=== PATIENT | female | born 1945 | race Caucasian/White ===

== ENCOUNTER → 2016-08-11 | Outpatient (CLI) | payer OTHER, MEDICARE ==
[~2016-08-11] MED LIST: ASPI81TA28 PO; RANI300T2 PO; SYN25 PO
--- NOTE | 2016-08-11 15:08 | MAMMOGRAPHY REPORT ---
ULTRASOUND OF BOTH BREASTS: 08/11/2016 CLINICAL HISTORY: History of bilateral mastectomies 2012. The patient reports pain in her chest, wh ich has been tender for years although appears worse since a fall in March and is also worse with more frequent arm movements. She denies any palpable lumps. COMPARISON: Comparison is made to exams dated: 08/13/2010 localization - [facility] and 07/12/2010 mammogram. TECHNIQUE: Real-time targeted ultrasound was performed. FINDINGS: Real-time, high-resolution targeted ultrasound was performed of the areas of pain pointed out by the patient, predominantly along both mastectomy scars. Along her right mastectomy scar, there are mul tiple round/oval circumscribed fluid collections/cysts, the largest measuring 1.7 x 0.8 x 1.2 cm lizandro ng the medial aspect of the scar. One of the masses along the medial aspect of the scar is anechoic but contains echogenic material internally, measuring 8 x 6 x 4 mm. One mass along the lateral asp ect of the scar is anechoic but contains a thickened internal septation, measuring 6 x 3 x 3 mm. An other anechoic fluid collection is seen along the lateral aspect of the scar measuring 8 x 6 x 6 mm. The masses are probably benign and likely represent postsurgical changes including fat necrosis an d/or seromas. Targeted ultrasound was performed along the left mastectomy bed along the scar. A round isoechoic 3 x 4 mm superficial mass with surrounding hyperechogenicity is noted along the lateral aspect of the scar, which likely represents fat necrosis. No suspicious solid masses are evident. IMPRESSION: ACR-BI-RADS CATEGORY 3: PROBABLY BENIGN - FOLLOW-UP RECOMMENDED Small fluid collections/cysts along the right mastectomy scar, some of which are complicated. The f indings are probably benign and likely represent postsurgical changes including fat necrosis. No caceres spicious masses are seen at the site of pain pointed out by the patient along bilateral mastectomy s cars. Recommend follow-up ultrasound in 6 months to reevaluate the newly visualized right breast ma sses given the complicated nature. Also recommend clinical follow-up for pain. The patient was verbally notified of the results. Fiona Cerna M.D. /:08/11/2016 11:58:56 Attending Technologist: Dennis KAUFMAN(Devonte)(M), [facility] Bedspread Inspector: Fiona Cerna MD, [facility] letter sent: Follow Up Recommended 3 BI-RADS Code: ACR-BI-RADS Category 3: Probably Benign
== END | disposition home or self-care (01) ==
LOC: C.MAMM 10:35
PROVIDERS: ATTEND Surgery
DX: R07.89 Other chest pain (principal); Z90.13 Acquired absence of bilateral breasts and nipples; R92.8 Other abnormal and inconclusive findings on diagnostic imaging of breast

== ENCOUNTER 2019-10-11 18:32 | Inpatient (IN) ==
[2019-10-11] MEDS ORDERED: SODIUM CHLORIDE 0.9% 250 ML IV PRN ×2 (19:26→21:14)
[2019-10-11 20:27] LABS: Hematocrit (blood only) 20.1 % (37-47); Hemoglobin 5.7 g/dL (12.0-16.0); Mean Corpuscular Hemoglobin 19.5 pg (25-34); Mean Corpuscular Hgb Conc 28.4 g/dL (32-36); Mean Corpuscular Volume 68.8 fL (80-100); Mean Platelet Volume 10.4 fL (7.4-10.4); Platelet Count 411 K/uL (130-400); RDW Coefficient of Variation 16.9 % (11.5-14.5); RDW Standard Deviation 42.8 fL (36.4-46.3); Red Blood Count 2.92 M/uL (4.2-5.4)
[2019-10-11 20:32] LABS: Alanine Aminotransferase 19 U/L (12-78); Albumin Level 3.2 gm/dl (3.4-5.0); Aspartate Aminotransferase 12 U/L (15-37); BUN Creatinine Ratio 14.7 (10-20); Blood Urea Nitrogen 15 mg/dl (7-18); Calcium 8.9 mg/dl (8.5-10.1); Carbon Dioxide 26 mmol/L (21-32); Chloride 113 mmol/L (98-107); Creatinine Clr Calc Pharmacy 46.4 ml/min; Est GFR (African American) 60.2; Est GFR (Non-African American) 51.9; Glucose 99 mg/dl (70-99); Potassium 4.2 mmol/L (3.5-5.1); Sodium 143 mmol/L (136-145)
[2019-10-11 20:36] LABS: Albumin Globulin Ratio 0.9 (0.9-2); Alkaline Phosphatase 80 U/L (45-117); Bilirubin,Total 0.3 mg/dl (0.2-1); Globulin 3.7 gm/dl (2.5-4.0); Total Protein 6.9 gm/dl (6.4-8.2); Troponin I < 0.015 ng/ml (0-0.045)
[2019-10-11 20:47] LABS: Basophils # (auto) 0.02 K/uL (0-0.2); Basophils % (auto) 0.3 %; Eosinophils # (auto) 0.16 K/uL (0-0.5); Eosinophils % (auto) 2.3 %; Giant Platelets 1+; Hypochromasia Present; Immature Granulocytes # (auto) 0.01 K/uL (0.00-0.02); Immature Granulocytes % (auto) 0.1 %; Lymphocytes # (auto) 1.14 K/uL (1.2-3.4); Lymphocytes % (auto) 16.3 %; Microcytosis Present; Monocytes # (auto) 0.79 K/uL (0.11-0.59); Monocytes % (auto) 11.3 %; Neutrophils # (auto) 4.88 K/uL (1.4-6.5); Neutrophils % (auto) 69.7 %; Target Cells 1+; Tear Drop Cells 1+
--- NOTE | 2019-10-11 21:16 | Emergency Department Note ---
ED Visit Note I have seen and examined this patient with Aysha Casiano and generally agree with the treatment plan as discussed. .
--- NOTE | 2019-10-11 23:53 | History and Physical Report ---
DATE OF ADMISSION: 10/11/2019 CHIEF COMPLAINT: Weakness, shortness of breath on exertion. HISTORY OF PRESENT ILLNESS: This is a 74-year-old female with past medical history significant for hypothyroidism, recurrent metastatic breast cancer, chronic kidney disease stage III, hiatal hernia, microcytic anemia, who presents because of feeling weak, not feeling good. The patient's about a month ago and she thought she is feeling depressed, tired, poor appetite, and poor sleep. Her family doctor increased her levothyroxine to 50 mcg. But she was not doing good workup was done as outpatient with CBC which showed significant anemia with hemoglobin of 5.9 and she was advised to come to the ER. Currently, her hemoglobin is 5.7, and hemodynamically stable. Denies any blood in the stools or black stools. Hemoccult was faintly positive in the ER. No abdominal pain, no hematuria, no burning micturitions. Has some nausea, but no vomiting. No chest pain. Has some shortness of breath on exertion. No cough. She gets hot flashes sometimes in the nighttime. Denies any headache, no blurred visions, no earache, no runny nose, no sore throat, no dysphagia. Currently resting comfortably and hemodynamically stable. 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 Had recurrent breast cancer hormone positive in December 2018. Since been on hormonal treatment with letrozole. 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 ALLERGIES: No known drug allergies. PAST MEDICAL HISTORY: As mentioned above. PAST SURGICAL HISTORY: Ligation of the oviduct, partial mastectomy in 2010, bilateral complete mastectomy in 2012, appendectomy at age of 15, localized retinal lesions treated with injections. MEDICATIONS: The patient is on Pepcid 20 mg p.o. daily, atorvastatin 10 mg p.o. daily, levothyroxine 50 mcg p.o. daily, Fosamax 70 mg p.o. weekly, lisinopril 40 mg p.o. daily, letrozole 2.5 mg p.o. daily, vitamin D 2000 units p.o. daily, aspirin 81 mg p.o. daily. FAMILY HISTORY: Significant for mother had metastatic lung cancer, heart disorder, goiter; father had diabetes, CABG. SOCIAL HISTORY: Currently lives alone. No smoking, no alcohol, no drug use. REVIEW OF SYSTEMS: As per HPI. Rest of the review of systems negative. PHYSICAL EXAMINATION: GENERAL: The patient is of moderate build, not in acute distress. VITAL SIGNS: Temperature 36.9, pulse 96, respiratory rate 19, blood pressure 143/62, oxygen 98%. HEENT: No pallor, no icterus. Pupils equal, round, and reactive. NECK: No JVD, no neck masses, no carotid bruits. Neck supple. CARDIOVASCULAR: S1, S2 heard. Regular rate and rhythm, no murmur, no gallop. RESPIRATORY SYSTEM: Normal AP diameter. No accessory muscle use. No wheezing, no crackles. ABDOMEN: Soft, bowel sounds present, nontender. No distention. CENTRAL NERVOUS SYSTEM: Cranial nerves II-XII grossly intact. Nonfocal. EXTREMITIES: No edema, no erythema. LABORATORY DATA: WBC 7, hemoglobin 5.7, hematocrit 20.1, platelets 411. Sodium 143, potassium 4.2, chloride 113, bicarbonate 26, BUN 15, creatinine 1.05, serum glucose 99, calcium 8.9, total bilirubin 0.3, AST 12, ALT 19, alkaline phosphatase 80, troponin I less than 0.015. EKG: Normal sinus rhythm, rate of 90, no acute ST changes seen. ASSESSMENT AND PLAN: This is a 74-year-old female who presents with symptomatic anemia. 1. Symptomatic anemia. Feeling weak, tired, fatigued, shortness of breath on exertion. Her hemoglobin is 5.7. No obvious signs of bleeding. Hemoccult was faintly positive in the ER. The patient has history of metastatic breast cancer, mets to the lungs, on letrozole.Will Transfuse 2 units of PRBC. We will check the hemoccult. We will check vitamin B12, folate levels, ferritin. We will keep her n.p.o. Gentle fluids. Will consult GI in the a.m. for possible scopes. To consider consulting hematology/oncology. 2. History of metastatic breast cancer, recurrent, status post bilateral mastectomies in 2012, currently on letrozole. Follows with hematology/oncology. 3. History of hypothyroidism. Continue Synthroid. 4. History of hypertension, on lisinopril. Monitor the blood pressure. 5. Hyperlipidemia, on statin. 6. Deep vein thrombosis prophylaxis, sequential compression devices. DISPOSITION: Closely monitor in the tele floor. Level 1 full. Code status DNR/DNI as per my discussion with the patient. MTDD
[2019-10-12] MEDS ORDERED: SODIUM CHLORIDE 0.9% 250 ML IV PRN (00:12)
[2019-10-12] MEDS ORDERED: POLYETHYLENE (MIRALAX) 17 GM PACK PO PRN (00:12)
[2019-10-12] MEDS ORDERED: ACETAMINOPHEN 325 MG TAB PO PRN ×2 (00:12→07:04)
[2019-10-12] MEDS ORDERED: SODIUM CHLORIDE 0.9% 1000ML 1,000 ML IV SCH (00:12)
[2019-10-12] MEDS ORDERED: NITROGLYCERIN SL 0.4 MG/TAB TAB SL PRN (00:12)
[2019-10-12] MEDS ORDERED: ONDANSETRON INJ 2 MG/ML 2 ML VIAL IV PRN (00:12)
--- NOTE | 2019-10-12 00:13 | Emergency Department Note ---
History of Present Illness General Chief complaint: Referred by Doctor Stated complaint: REF FOR BLOOD TRANS - TIRED NO ENERGY Time Seen by Provider: 10/11/19 19:12 Source: patient Mode of arrival: ambulatory Limitations: no limitations History of Present Illness This patient is a 74-year-old female who presents to the emergency department for evaluation of weakness x1 week. Patient reports that she has felt more fatigued than usual and has had weakness in her legs. She reports some shortness of breath on exertion. She reports some minimal lightheadedness and denies any episodes of syncope. Denies chest pain. She denies fevers or recent illness. She reports that she was seen by her primary care provider today and had labs drawn and was called telling her to come here because her blood counts were low. She reports a history of breast cancer in 2010 with bilateral mastectomy. She is also treated for hypertension. She denies noticing any blood in her stools or dark/tarry stools. She denies any history of anemia or blood transfusions. Home Medications Home Medications Medication Instructions Recorded Confirmed Type alendronate 70 mg tablet 70 mg PO WEEKLY tab 11/16/18 10/11/19 History aspirin 81 mg tablet,delayed 81 mg PO QAM 11/16/18 10/11/19 History release atorvastatin 10 mg tablet 10 mg PO QAM 11/16/18 10/11/19 History cholecalciferol (vitamin D3) 50 2,000 units PO QAM 11/16/18 10/11/19 History mcg (2,000 unit) capsule levothyroxine 50 mcg capsule 50 mcg PO QAM 11/16/18 10/11/19 History letrozole 2.5 mg PO QAM 10/11/19 10/11/19 History lisinopril 40 mg PO QAM 10/11/19 10/11/19 History Allergies Allergy/AdvReac Type Severity Reaction Status Date / Time No Known Allergies Allergy Verified 10/11/19 21:15 Past Med/Surg History Medical History Breast cancer, right breast h/o 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 Shagufta shen H/O partial mastectomy (07/2010) Right sentinel node and right partial mastectomy Dr. Maya History of esophagogastroduodenoscopy (EGD) History of partial mastectomy (08/2010) Re-excision of right breast Dr. Maya S/P appendectomy Age 16 S/P biopsy (12/20/18) Open Excisional Biopsy Anterior Chest Wall with Frozen Section Dr. Friend 12-20-18 Social History Preferred Language: Maltese Communication Ability: Effective Implementation Manager Required: No Beliefs That Will Affect Care: None Current Living Situation: Spouse Feels Safe at Home: Yes Smoking Status: Never smoker Second Hand Exposure: Yes (as a child) ; Hx Alcohol Use: No Hx Substance Use: No Review of Systems A total of 10 systems reviewed and were otherwise negative Physical Exam Vital Signs Vital Signs - 24 hr 10/11/19 18:50 10/11/19 19:54 10/11/19 20:00 Temperature 36.9 C Temperature Source Oral Pulse Rate 96 H 91 H 86 Respiratory Rate 19 18 27 H Respiratory Depth Normal Blood Pressure 143/62 H 146/64 H 132/65 Blood Pressure Mean 89 81 93 Pulse Oximetry 98 98 95 Oxygen Delivery Method Room Air Room Air Oxygen Flow Rate Sepsis Recent Fever Within 48 Hours No Sepsis Action Taken by Nursing No Action Required 10/11/19 20:30 10/11/19 20:31 10/11/19 21:00 Temperature Temperature Source Pulse Rate 84 83 98 H Respiratory Rate 18 18 20 Respiratory Depth Blood Pressure 127/71 141/61 H Blood Pressure Mean 80 85 Pulse Oximetry 97 97 Oxygen Delivery Method Room Air Oxygen Flow Rate Sepsis Recent Fever Within 48 Hours Sepsis Action Taken by Nursing 10/11/19 21:30 10/11/19 22:00 10/11/19 22:07 Temperature 36.8 C Temperature Source Oral Pulse Rate 83 84 88 Respiratory Rate 18 15 20 Respiratory Depth Blood Pressure 134/71 124/71 143/67 H Blood Pressure Mean 100 84 92 Pulse Oximetry 98 98 96 Oxygen Delivery Method Oxygen Flow Rate Sepsis Recent Fever Within 48 Hours Sepsis Action Taken by Nursing 10/11/19 22:22 10/11/19 23:24 Temperature 36.7 C Temperature Source Oral Pulse Rate 86 84 Respiratory Rate 18 20 Respiratory Depth Blood Pressure 135/52 L 140/71 Blood Pressure Mean 79 94 Pulse Oximetry 97 97 Oxygen Delivery Method Room Air Oxygen Flow Rate 0 Sepsis Recent Fever Within 48 Hours Sepsis Action Taken by Nursing VITALS: Vitals are noted on the nurse's note and reviewed by myself. Vital signs stable. GENERAL: This is a 74-year-old female, in no acute distress, nondiaphoretic, well-developed well-nourished. SKIN: Skin is pale and dry. HEAD: Normocephalic atraumatic. EARS: External auditory canals clear, tympanic membranes pearly ramesh without erythema or effusion bilaterally. EYES: Pupils equal round and reactive to light and accommodation. Conjunctival pallor. MOUTH: Mucous membranes moist. NECK: Supple without nuchal rigidity. No lymphadenopathy. HEART: Regular rate and rhythm without murmurs gallops or rubs. LUNGS: Clear to auscultation bilaterally without wheezes, rales or rhonchi. ABDOMEN: Positive bowel sounds x 4. Soft, nontender to palpation. RECTAL: No external hemorrhoids or anal fissures noted. Dark brown heme- negative stool. NEURO: Patient was alert and oriented to person place and time. No neurological deficits. Course Consultations [facility] Time Critical Care Time: Yes Total Critical Care Time: 35 I have personally spent greater than 35 minutes of critical care time in the direct management of this patient. This includes bedside care, interpretation of diagnostic studies, and testing, discussion with consultants, patient, and family members, and other required patient management activities. This 35 minutes is in excess of all separately billable procedures. Medical Decision Making Differential Diagnosis Differential diagnosis includes infection, dehydration, metabolic abnormality, hypo/hyperglycemia, electrolyte disturbance, anemia, hypoxia, cardiac sources, intracerebral event, toxicologic, neurologic, as well as other pathologies. Home Medications Current Medication List: was personally reviewed by me Laboratory Data Attestation: I reviewed the patient's lab results. Result diagrams: 10/11/19 19:50 10/11/19 19:50 Lab Results 10/11/19 10/11/19 10/11/19 Range/Units 19:35 19:50 19:50 WBC 7.00 (4.8-10.8) K/uL RBC 2.92 L (4.2-5.4) M/uL Hgb 5.7 L* (12.0-16.0) g/dL Hct 20.1 L* (37-47) % MCV 68.8 L (80-100) fL MCH 19.5 L (25-34) pg MCHC 28.4 L (32-36) g/dL RDW Std Deviation 42.8 (36.4-46.3) fL RDW Coeff of [place] 16.9 H (11.5-14.5) % Plt Count 411 H (130-400) K/uL MPV 10.4 (7.4-10.4) fL Immature Gran % (Auto) 0.1 % Neut % (Auto) 69.7 % Lymph % (Auto) 16.3 % [place] % (Auto) 11.3 % Eos % (Auto) 2.3 % Baso % (Auto) 0.3 % Neut # (Auto) 4.88 (1.4-6.5) K/uL Lymph # (Auto) 1.14 L (1.2-3.4) K/uL [place] # (Auto) 0.79 H (0.11-0.59) K/uL Eos # (Auto) 0.16 (0-0.5) K/uL Baso # (Auto) 0.02 (0-0.2) K/uL Immature Gran # (Auto) 0.01 (0.00-0.02) K/uL Giant Platelets 1+ Hypochromasia Present Microcytosis Present Target Cells 1+ Tear Drop Cells 1+ Sodium 143 (136-145) mmol/L Potassium 4.2 (3.5-5.1) mmol/L Chloride 113 H (98-107) mmol/L Carbon Dioxide 26 (21-32) mmol/L Anion Gap 4.0 (3-11) BUN 15 (7-18) mg/dl Creatinine 1.05 (0.6-1.2) mg/dl Est Cr Clr Drug Dosing 46.4 ml/min Est GFR ( Amer) 60.2 Est GFR (Non-Af Amer) 51.9 BUN/Creatinine Ratio 14.7 (10-20) Glucose 99 (70-99) mg/dl Calcium 8.9 (8.5-10.1) mg/dl Total Bilirubin 0.3 (0.2-1) mg/dl AST 12 L (15-37) U/L ALT 19 (12-78) U/L Alkaline Phosphatase 80 (45-117) U/L Troponin I < 0.015 (0-0.045) ng/ml Total Protein 6.9 (6.4-8.2) gm/dl Albumin 3.2 L (3.4-5.0) gm/dl Globulin 3.7 (2.5-4.0) gm/dl Albumin/Globulin Ratio 0.9 (0.9-2) Blood Type O Positive Blood Type Recheck Antibody Screen NEGATIVE Crossmatch See Detail 10/11/19 Range/Units 20:35 WBC (4.8-10.8) K/uL RBC (4.2-5.4) M/uL Hgb (12.0-16.0) g/dL Hct (37-47) % MCV (80-100) fL MCH (25-34) pg MCHC (32-36) g/dL RDW Std Deviation (36.4-46.3) fL RDW Coeff of [place] (11.5-14.5) % Plt Count (130-400) K/uL MPV (7.4-10.4) fL Immature Gran % (Auto) % Neut % (Auto) % Lymph % (Auto) % [place] % (Auto) % Eos % (Auto) % Baso % (Auto) % Neut # (Auto) (1.4-6.5) K/uL Lymph # (Auto) (1.2-3.4) K/uL [place] # (Auto) (0.11-0.59) K/uL Eos # (Auto) (0-0.5) K/uL Baso # (Auto) (0-0.2) K/uL Immature Gran # (Auto) (0.00-0.02) K/uL Giant Platelets Hypochromasia Microcytosis Target Cells Tear Drop Cells Sodium (136-145) mmol/L Potassium (3.5-5.1) mmol/L Chloride (98-107) mmol/L Carbon Dioxide (21-32) mmol/L Anion Gap (3-11) BUN (7-18) mg/dl Creatinine (0.6-1.2) mg/dl Est Cr Clr Drug Dosing ml/min Est GFR ( Amer) Est GFR (Non-Af Amer) BUN/Creatinine Ratio (10-20) Glucose (70-99) mg/dl Calcium (8.5-10.1) mg/dl Total Bilirubin (0.2-1) mg/dl AST (15-37) U/L ALT (12-78) U/L Alkaline Phosphatase (45-117) U/L Troponin I (0-0.045) ng/ml Total Protein (6.4-8.2) gm/dl Albumin (3.4-5.0) gm/dl Globulin (2.5-4.0) gm/dl Albumin/Globulin Ratio (0.9-2) Blood Type Blood Type Recheck O Positive Antibody Screen Crossmatch ECG Data Attestation: I personally reviewed and interpreted this ECG as follows: Indication: + weakness Rate (beats per minute): 90 Rhythm: + normal sinus ECG Intervals/blocks: + Normal QRS ECG [place]: + Normal ECG ST segments: + Normal ST segments Comparison ECG Date: no prior available Blood Pressure Blood Pressure Findings: Normal blood pressure MDM Narrative 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 Patient was noted to be in normal sinus rhythm at an initial rate of 91 bpm. The patient is a 74-year-old female who presents today complaining of weakness. Patient was sent in by her primary care provider due to a low hemoglobin. Hemoglobin here is 5.7. Rectal is Hemoccult negative. Labs unremarkable other than the anemia. 2 units of packed red blood cells were ordered and consent obtained for transfusion. [facility] who agreed to evaluate the patient for further care. Impression & Plan Symptomatic anemia Discharge Plan Visit Data *Final* Discharge Date/Time: 10/11/19 23:36 Chief Complaint: Referred by Doctor Stated Complaint: REF FOR BLOOD TRANS - TIRED NO ENERGY ED Provider: Yong Menchaca ED Midlevel Provider: Aysha Casiano Discharge Problem: Symptomatic anemia Patient Disposition: Admitted As Inpatient Discharge Instructions Interventions: ED Discharge Assessment Last Done: 10/11/19 23:36
[2019-10-12] MEDS ORDERED: FUROSEMIDE 20 MG in SYRINGE 0 ML IV ONE (00:30)
[2019-10-12] MEDS ORDERED: FUROSEMIDE 40 MG/4 ML VIAL IV ONE (01:00)
[2019-10-12] MEDS: PANTOprazole 40 MG in SYRINGE 0 ML IV SCH ×3 (01:39→20:55)
[2019-10-12 01:42] LABS: Appearance Urine Clear (Clear); Bacteria Urine Automated Negative (Negative); Bilirubin Urine Negative (Negative); Blood Urine Negative (Negative); Color Urine Yellow; Glucose Urine UA Negative (Negative); Ketones Urine Negative (Negative); Leukocyte Esterase Urine 3+ (Negative); Nitrite Urine Negative (Negative); Protein Urine Negative (Negative); RBC Urine Automated 0-4 /hpf (0-4); Specific Gravity Urine 1.016 (1.000-1.030); Urobilinogen Urine Negative (Negative); WBC Urine Automated >30 /hpf (0-5); pH Urine 5.5 (4.5-7.5)
[2019-10-12 06:24] LABS: Basophils # (auto) 0.01 K/uL (0-0.2); Basophils % (auto) 0.1 %; Eosinophils # (auto) 0.18 K/uL (0-0.5); Eosinophils % (auto) 2.6 %; Hematocrit (blood only) 27.9 % (37-47); Hemoglobin 8.4 g/dL (12.0-16.0); Hypochromasia Present; Immature Granulocytes # (auto) 0.01 K/uL (0.00-0.02); Immature Granulocytes % (auto) 0.1 %; Lymphocytes # (auto) 1.01 K/uL (1.2-3.4); Lymphocytes % (auto) 14.5 %; Mean Corpuscular Hemoglobin 21.8 pg (25-34); Mean Corpuscular Hgb Conc 30.1 g/dL (32-36); Mean Corpuscular Volume 72.5 fL (80-100); Mean Platelet Volume 10.1 fL (7.4-10.4); Monocytes # (auto) 0.83 K/uL (0.11-0.59); Monocytes % (auto) 11.9 %; Neutrophils # (auto) 4.93 K/uL (1.4-6.5); Neutrophils % (auto) 70.8 %; Platelet Count 342 K/uL (130-400); RDW Coefficient of Variation 19.1 % (11.5-14.5); RDW Standard Deviation 49.4 fL (36.4-46.3); Red Blood Count 3.85 M/uL (4.2-5.4); White Blood Count 6.97 K/uL (4.8-10.8)
[2019-10-12 06:31] LABS: BUN Creatinine Ratio 12.8 (10-20); Calcium 9.1 mg/dl (8.5-10.1); Creatinine Clr Calc Pharmacy 45.8 ml/min; Est GFR (African American) 59.5; Est GFR (Non-African American) 51.3; Magnesium 2.1 mg/dl (1.8-2.4); Potassium 3.7 mmol/L (3.5-5.1)
[2019-10-12 06:36] LABS: Ferritin 3.9 ng/ml (8-388)
[2019-10-12] MEDS: LEVOTHYROXINE SODIUM 50 MCG TABLET PO SCH (07:07)
[2019-10-12] MEDS ORDERED: D5W AND 1/2NSS 1,000 ML IV SCH (07:15)
[2019-10-12 09:02] LABS: Folate (Folic Acid) 9.14 ng/ml (>5.38)
[2019-10-12] MEDS: lisinopriL 40 MG TAB PO SCH (09:10)
[2019-10-12] MEDS: LETROZOLE 2.5 MG TAB PO SCH (09:10)
[2019-10-12] MEDS: CHOLECALCIFEROL 1,000 UNITS 25 MCG TAB PO SCH (09:10)
[2019-10-12] MEDS: ATORVASTATIN 10 MG TAB PO SCH (09:17)
--- NOTE | 2019-10-12 10:47 | Electrocardiogram Report ---
Test Reason : Blood Pressure : / mmHG Vent. Rate : 090 BPM Atrial Rate : 090 BPM P-R Int : 118 ms QRS Dur : 078 ms QT Int : 338 ms P-R-T Axes : 036 -06 016 degrees QTc Int : 413 ms Normal sinus rhythm Normal ECG No previous ECGs available Confirmed by Rolando Sanabria ([id number]) on 10/12/2019 10:47:18 AM Referred By: REFERRED SELF Confirmed By:Fredy Sanabria
--- NOTE | 2019-10-12 11:10 | Gastrointestinal Consultation ---
Date of Consultation October 12, 2019 Assessment & Plan (1) Symptomatic anemia: Patient admitted for evidence of symptomatic iron deficiency anemia. The present time there is no urgent need for endoscopic support over the weekend. I would recommend an upper endoscopy and colonoscopy which we can arrange for Monday if the patient remains in the hospital over the weekend. Recommendations Liquid diet over the weekend N.p.o. Monday night at midnight Bowel Preparation to begin on Monday evening Please call with any questions or concerns coverage to resume on Monday History of Present Illness Reason for Consultation: Anemia Requesting Physician: Dr. Caban Attending Physician: Robert Caban MD History of Present Illness The patient is a 74-year-old female who presented to the emergency department upon recommendation from her primary care doctor after she was found to be severely anemic. The patient notes that for the past few weeks she has been feeling progressively short of breath. She tried to ignore this as her recently passed and she was feeling somewhat low. The patient has never had an upper endoscopy nor colonoscopy. She denies having difficulty with swallowing pain with swallowing fevers chills or sweats. She denies having any recent weig ht loss. The patient did have a Cologuard as an outpatient which was reported to me as being negative. The patient's history is notable for breast cancer for which she is followed by hematology. It appears that she has metastatic disease noted previously been on hormonal therapy. The patient denies having dark sticky stools or hematemesis. She did have her stool checked for occult blood in the emergency room which was found to be trace positive. Of note this was brown stool. . Allergies Allergy/AdvReac Type Severity Reaction Status Date / Time No Known Allergies Allergy Verified 10/11/19 21:15 Home Medications Home Medications Medication Instructions Recorded Confirmed Type alendronate 70 mg tablet 70 mg PO WEEKLY tab 11/16/18 10/11/19 History aspirin 81 mg tablet,delayed 81 mg PO QAM 11/16/18 10/11/19 History release atorvastatin 10 mg tablet 10 mg PO QAM 11/16/18 10/11/19 History cholecalciferol (vitamin D3) 50 2,000 units PO QAM 11/16/18 10/11/19 History mcg (2,000 unit) capsule levothyroxine 50 mcg capsule 50 mcg PO QAM 11/16/18 10/11/19 History letrozole 2.5 mg PO QAM 10/11/19 10/11/19 History lisinopril 40 mg PO QAM 10/11/19 10/11/19 History Patient History Medical History Breast cancer, right breast h/o infiltrating ductal carcinoma in lower outer quadrant - s/p right mastectomy + radiation Chronic kidney disease Follows w/ Dr. 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 Maya H/O partial mastectomy (07/2010) Right sentinel node and right partial mastectomy Dr. Maya History of esophagogastroduodenoscopy (EGD) History of partial mastectomy (08/2010) Re-excision of right breast Dr. Maya S/P appendectomy Age 16 S/P biopsy (12/20/18) Open Excisional Biopsy Anterior Chest Wall with Frozen Section Dr. 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 Required: No Beliefs That Will Affect Care: None marital status: / Current Living Situation: Alone Other Information That Helps Us Care for You: No Feels Safe at Home: Yes Safety Concerns: Feels Safe At This Time Smoking Status: Never smoker Do You Dip or Chew Tobacco: No ; Second Hand Exposure: No ; Tobacco Cessation Education Requested by Patient: No Hx Alcohol Use: No Hx Substance Use: No Review of Systems Constitutional: + malaise and + weakness; no fever and no sweats Respiratory: + dyspnea; no cough, no change in sputum and no hemoptysis Cardiovascular: + dyspnea at rest; no chest pain, no chest pain with activity and no syncope Gastrointestinal: no bloating, no nausea, no hematemesis, no cramping and no change in stools Genitourinary: no urinary frequency and no urinary incontinence Neurologic: no paralysis Hematologic / Lymphatic: no coagulopathy Physical Exam Constitutional: WD/WN, vitals as above Eyes: PERRL, conjunctivae normal, anicteric sclerae Neck: trachea midline, no thyromegaly Respiratory: normal respiratory effort, lungs clear to auscultation Cardiovascular: Rate/Rhythm: regular rhythm Heart Sounds: + murmur Gastrointestinal (Abdomen): normal bowel sounds, soft, nontender, no hepatosplenomegaly Skin: no rashes, warm and dry normal turgor Results & Data ([facility]) Vital Signs (Past 12 Hours) Vital Signs Temp Pulse Pulse Resp BP BP Pulse Ox 10/12/19 08:00 74 10/12/19 07:47 36.8 C 82 24 123/61 97 10/12/19 06:00 36.8 C 74 17 123/63 93 10/12/19 05:00 36.5 C 79 17 134/64 99 10/12/19 04:30 36.8 C 73 19 134/64 98 10/12/19 04:01 76 18 124/62 96 10/12/19 03:20 36.8 C 74 19 124/62 96 10/12/19 02:20 36.8 C 75 18 124/62 96 10/12/19 02:15 75 19 124/62 94 10/12/19 02:00 36.8 C 77 17 125/59 L 94 10/12/19 01:50 36.8 C 77 18 128/61 96 10/12/19 01:45 76 17 128/61 95 10/12/19 01:35 36.8 C 76 15 124/60 95 10/12/19 01:30 80 15 124/60 96 10/12/19 01:25 36.8 C 77 21 131/60 97 10/12/19 01:19 36.8 C 77 19 133/62 96 10/12/19 01:16 36.8 C 78 19 133/62 96 10/12/19 01:05 36.8 C 85 22 133/62 97 10/12/19 00:11 36.8 C 88 16 138/73 94 10/12/19 00:04 36.8 C 96 H 19 139/73 10/11/19 23:24 84 20 140/71 97 Laboratory Results Laboratory Results - last 24 hr 10/11/19 10/11/19 10/11/19 19:35 19:50 19:50 WBC 7.00 RBC 2.92 L Hgb 5.7 L* Hct 20.1 L* MCV 68.8 L MCH 19.5 L MCHC 28.4 L RDW Std Deviation 42.8 RDW Coeff of [place] 16.9 H Plt Count 411 H MPV 10.4 Immature Gran % (Auto) 0.1 Neut % (Auto) 69.7 Lymph % (Auto) 16.3 [place] % (Auto) 11.3 Eos % (Auto) 2.3 Baso % (Auto) 0.3 Neut # (Auto) 4.88 Lymph # (Auto) 1.14 L [place] # (Auto) 0.79 H Eos # (Auto) 0.16 Baso # (Auto) 0.02 Immature Gran # (Auto) 0.01 Giant Platelets 1+ Hypochromasia Present Microcytosis Present Target Cells 1+ Tear Drop Cells 1+ Sodium 143 Potassium 4.2 Chloride 113 H Carbon Dioxide 26 Anion Gap 4.0 BUN 15 Creatinine 1.05 Est Cr Clr Drug Dosing 46.4 Est GFR ( Amer) 60.2 Est GFR (Non-Af Amer) 51.9 BUN/Creatinine Ratio 14.7 Glucose 99 Calcium 8.9 Magnesium Ferritin Total Bilirubin 0.3 AST 12 L ALT 19 Alkaline Phosphatase 80 Troponin I < 0.015 Total Protein 6.9 Albumin 3.2 L Globulin 3.7 Albumin/Globulin Ratio 0.9 Vitamin B12 Folate Urine Color Urine Appearance Urine pH Ur Specific Hansen Urine Protein Urine Glucose (UA) Urine Ketones Urine Blood Urine Nitrite Urine Bilirubin Urine Urobilinogen Ur Leukocyte Esterase Urine WBC (Auto) Urine RBC (Auto) U Hyaline Cast (Auto) U Epithel Cells (Auto) Urine Bacteria (Auto) Blood Type O Positive Blood Type Recheck Antibody Screen NEGATIVE Crossmatch See Detail 10/11/19 10/12/19 10/12/19 20:35 01:00 05:00 WBC RBC Hgb Hct MCV MCH MCHC RDW Std Deviation RDW Coeff of [place] Plt Count MPV Immature Gran % (Auto) Neut % (Auto) Lymph % (Auto) [place] % (Auto) Eos % (Auto) Baso % (Auto) Neut # (Auto) Lymph # (Auto) [place] # (Auto) Eos # (Auto) Baso # (Auto) Immature Gran # (Auto) Giant Platelets Hypochromasia Microcytosis Target Cells Tear Drop Cells Sodium 144 Potassium 3.7 Chloride 113 H Carbon Dioxide 26 Anion Gap 5.0 BUN 14 Creatinine 1.06 Est Cr Clr Drug Dosing 45.8 Est GFR ( Amer) 59.5 Est GFR (Non-Af Amer) 51.3 BUN/Creatinine Ratio 12.8 Glucose 104 H Calcium 9.1 Magnesium 2.1 Ferritin 3.9 L Total Bilirubin AST ALT Alkaline Phosphatase Troponin I Total Protein Albumin Globulin Albumin/Globulin Ratio Vitamin B12 Folate Urine Color Yellow Urine Appearance Clear Urine pH 5.5 Ur Specific [place] 1.016 Urine Protein Negative Urine Glucose (UA) Negative Urine Ketones Negative Urine Blood Negative Urine Nitrite Negative Urine Bilirubin Negative Urine Urobilinogen Negative Ur Leukocyte Esterase 3+ H Urine WBC (Auto) >30 H Urine RBC (Auto) 0-4 U Hyaline Cast (Auto) 5-10 H U Epithel Cells (Auto) 5-10 H Urine Bacteria (Auto) Negative Blood Type Blood Type Recheck O Positive Antibody Screen Crossmatch 10/12/19 10/12/19 05:00 05:00 WBC 6.97 RBC 3.85 L Hgb 8.4 L Hct 27.9 L MCV 72.5 L D MCH 21.8 L MCHC 30.1 L RDW Std Deviation 49.4 H RDW Coeff of [place] 19.1 H Plt Count 342 MPV 10.1 Immature Gran % (Auto) 0.1 Neut % (Auto) 70.8 Lymph % (Auto) 14.5 [place] % (Auto) 11.9 Eos % (Auto) 2.6 Baso % (Auto) 0.1 Neut # (Auto) 4.93 Lymph # (Auto) 1.01 L [place] # (Auto) 0.83 H Eos # (Auto) 0.18 Baso # (Auto) 0.01 Immature Gran # (Auto) 0.01 Giant Platelets Hypochromasia Present Microcytosis Target Cells Tear Drop Cells Sodium Potassium Chloride Carbon Dioxide Anion Gap BUN Creatinine Est Cr Clr Drug Dosing Est GFR ( Amer) Est GFR (Non-Af Amer) BUN/Creatinine Ratio Glucose Calcium Magnesium Ferritin Total Bilirubin AST ALT Alkaline Phosphatase Troponin I Total Protein Albumin Globulin Albumin/Globulin Ratio Vitamin B12 425 Folate 9.14 Urine Color Urine Appearance Urine pH Ur Specific Hansen Urine Protein Urine Glucose (UA) Urine Ketones Urine Blood Urine Nitrite Urine Bilirubin Urine Urobilinogen Ur Leukocyte Esterase Urine WBC (Auto) Urine RBC (Auto) U Hyaline Cast (Auto) U Epithel Cells (Auto) Urine Bacteria (Auto) Blood Type Blood Type Recheck Antibody Screen Crossmatch
--- NOTE | 2019-10-12 11:19 | Hospitalist Progress Note ---
Date of Service October 12, 2019 Assessment & Plan (1) Symptomatic anemia: as per admission note on 10/12/2019 "This is a 74-year-old female with past medical history significant for hypothyroidism, recurrent metastatic breast cancer, chronic kidney disease stage III, hiatal hernia, microcytic anemia, who presents because of feeling weak, not feeling good. The patient's about a month ago and she thought she is feeling depressed, tired, poor appetite, and poor sleep. Her family doctor increased her levothyroxine to 50 mcg. But she was not doing good workup was done as outpatient with CBC which showed significant anemia with hemoglobin of 5.9 and she was advised to come to the ER. Currently, her hemoglobin is 5.7, and hemodynamically stable. Denies any blood in the stools or black stools. Hemoccult was faintly positive in the ER." -microcytic anemia but iron studies were not drawn prior to transfusion -patient s/p 2 units of PRBC from admission and follow up Hgb is 8.4 -normal serum B12 and normal serum folic acid levels -will send FOBT with next bowel movement, trend the CBC, can start liquid diet as per gastroenterology service -patient evaluated by gastroenterology service and to consider upper endoscopy and colonoscopy on Monday October 14, 2019 History of metastatic breast cancer, recurrent, status post bilateral mastectomies in 2012 -currently on letrozole. Follows with hematology/oncology -if future GI workup is unremarkable, may have to consider whether oncology history plays a role in the anemia Hypothyroidism -Continue Synthroid -check thyroid function labs Hypertension -on lisinopril Hyperlipidemia -on statin. Deep vein thrombosis prophylaxis, sequential compression devices. Admission and Anticipated Discharge Date Admission Date: October 11, 2019 Subjective no chest pain. no shortness of breath. no abdomen pain. no vomiting. no dizziness. no headache. no distress Review of Systems Review of Systems: All systems reviewed & are unremarkable except as noted in Subjective Physical Exam Constitutional: comfortable Eyes: PERRL, conjunctivae normal, anicteric sclerae EOM intact bilaterally ENMT: external ear and nose normal, oropharynx normal Neck: trachea midline, no thyromegaly normal visual inspection Respiratory: normal respiratory effort, lungs clear to auscultation Cardiovascular: Rate/Rhythm: regular rate Gastrointestinal (Abdomen): normal bowel sounds, soft, nontender, no hepatosplenomegaly Musculoskeletal: Head/Neck/Chest: normocephalic and head atraumatic Neurologic: PERRL, EOMI, accommodation nl, no face palsy, no dysarthria CN's II-XI intact bilaterally Psychiatric: A+Ox3, euthymic affect Results & Data Results & Data ([facility]) Vital Signs (Past 12 Hours) Vital Signs Temp Pulse Pulse Resp BP BP Pulse Ox 10/12/19 08:00 74 10/12/19 07:47 36.8 C 82 24 123/61 97 10/12/19 06:00 36.8 C 74 17 123/63 93 10/12/19 05:00 36.5 C 79 17 134/64 99 10/12/19 04:30 36.8 C 73 19 134/64 98 10/12/19 04:01 76 18 124/62 96 10/12/19 03:20 36.8 C 74 19 124/62 96 10/12/19 02:20 36.8 C 75 18 124/62 96 10/12/19 02:15 75 19 124/62 94 10/12/19 02:00 36.8 C 77 17 125/59 L 94 10/12/19 01:50 36.8 C 77 18 128/61 96 10/12/19 01:45 76 17 128/61 95 10/12/19 01:35 36.8 C 76 15 124/60 95 10/12/19 01:30 80 15 124/60 96 10/12/19 01:25 36.8 C 77 21 131/60 97 10/12/19 01:19 36.8 C 77 19 133/62 96 10/12/19 01:16 36.8 C 78 19 133/62 96 10/12/19 01:05 36.8 C 85 22 133/62 97 10/12/19 00:11 36.8 C 88 16 138/73 94 10/12/19 00:04 36.8 C 96 H 19 139/73 10/11/19 23:24 84 20 140/71 97
[2019-10-12 12:04] LABS: Basophils # (auto) 0.02 K/uL (0-0.2); Basophils % (auto) 0.3 %; Eosinophils # (auto) 0.15 K/uL (0-0.5); Eosinophils % (auto) 2.2 %; Hematocrit (blood only) 28.3 % (37-47); Hemoglobin 8.4 g/dL (12.0-16.0); Immature Granulocytes # (auto) 0.02 K/uL (0.00-0.02); Immature Granulocytes % (auto) 0.3 %; Lymphocytes # (auto) 0.96 K/uL (1.2-3.4); Lymphocytes % (auto) 14.1 %; Mean Corpuscular Hemoglobin 21.9 pg (25-34); Mean Corpuscular Hgb Conc 29.7 g/dL (32-36); Mean Corpuscular Volume 73.7 fL (80-100); Mean Platelet Volume 9.8 fL (7.4-10.4); Monocytes # (auto) 0.62 K/uL (0.11-0.59); Monocytes % (auto) 9.1 %; Neutrophils # (auto) 5.02 K/uL (1.4-6.5); Platelet Count 354 K/uL (130-400); RDW Coefficient of Variation 19.2 % (11.5-14.5); RDW Standard Deviation 50.9 fL (36.4-46.3); Red Blood Count 3.84 M/uL (4.2-5.4); White Blood Count 6.79 K/uL (4.8-10.8)
[2019-10-12 12:33] LABS: Anisocytosis Present; Hypochromasia Present; Microcytosis Present
[2019-10-13] MEDS: LEVOTHYROXINE SODIUM 50 MCG TABLET PO SCH (06:15)
[2019-10-13 07:25] LABS: Basophils # (auto) 0.01 K/uL (0-0.2); Basophils % (auto) 0.2 %; Eosinophils # (auto) 0.25 K/uL (0-0.5); Hematocrit (blood only) 28.3 % (37-47); Hemoglobin 8.5 g/dL (12.0-16.0); Immature Granulocytes # (auto) 0.01 K/uL (0.00-0.02); Immature Granulocytes % (auto) 0.2 %; Lymphocytes # (auto) 0.77 K/uL (1.2-3.4); Lymphocytes % (auto) 12.4 %; Mean Corpuscular Hemoglobin 21.9 pg (25-34); Mean Corpuscular Volume 72.8 fL (80-100); Mean Platelet Volume 9.9 fL (7.4-10.4); Monocytes # (auto) 0.61 K/uL (0.11-0.59); Monocytes % (auto) 9.9 %; Neutrophils # (auto) 4.54 K/uL (1.4-6.5); Neutrophils % (auto) 73.3 %; Platelet Count 335 K/uL (130-400); RDW Coefficient of Variation 19.6 % (11.5-14.5); RDW Standard Deviation 50.7 fL (36.4-46.3); Red Blood Count 3.89 M/uL (4.2-5.4); White Blood Count 6.19 K/uL (4.8-10.8)
[2019-10-13 07:56] LABS: Hypochromasia Present; Microcytosis Present
--- NOTE | 2019-10-13 08:52 | Gastroenterology Progress Note ---
Date of Service October 13, 2019 Assessment & Plan (1) Symptomatic anemia: Patient presented with severe microcytic anemia. We are planning to perform upper endoscopy and colonoscopy tomorrow. Given the patient's history of metastatic breast cancer perhaps she would benefit from a CT as well to look for mass within the abdomen or pelvis. Recommendations Bowel preparation written for this evening egd and colonoscopy with Dr. Turner on Monday. Patient may have a clear liquid diet today N.p.o. at midnight Consider a CT of the abdomen and pelvis to look for an occult mass Admission and Anticipated Discharge Date Admission Date: October 11, 2019 Subjective The patient reports having no chest pain or shortness of breath. There is been no reports of melena nor hematemesis since admission. She is presently on a clear liquid diet and to undergo a bowel preparation early this evening for upper endoscopy and colonoscopy tomorrow for her evaluation of her severe iron deficiency anemia Review of Systems Constitutional: + weakness; no fever and no sweats Eyes: no diplopia Respiratory: no change in sputum Physical Exam Constitutional: WD/WN, vitals as above well developed and well nourished; no acute distress Eyes: PERRL, conjunctivae normal, anicteric sclerae Neck: trachea midline, no thyromegaly Respiratory: normal respiratory effort; no respiratory distress Gastrointestinal (Abdomen): Percussion/Palpation: abdomen soft; abdomen nontender and no guarding Results & Data ([facility]) Vital Signs (Past 12 Hours) Vital Signs Temp Pulse Resp BP Pulse Ox 10/13/19 04:29 36.7 C 86 18 116/63 10/13/19 00:39 74 10/13/19 00:01 37.2 C 83 19 119/55 L 97 Laboratory Results Laboratory Results - last 24 hr 10/12/19 10/12/19 10/12/19 05:00 11:56 11:56 WBC 6.79 RBC 3.84 L Hgb 8.4 L Hct 28.3 L MCV 73.7 L MCH 21.9 L MCHC 29.7 L RDW Std Deviation 50.9 H RDW Coeff of [place] 19.2 H Plt Count 354 MPV 9.8 Immature Gran % (Auto) 0.3 Neut % (Auto) 74.0 Lymph % (Auto) 14.1 [place] % (Auto) 9.1 Eos % (Auto) 2.2 Baso % (Auto) 0.3 Neut # (Auto) 5.02 Lymph # (Auto) 0.96 L [place] # (Auto) 0.62 H Eos # (Auto) 0.15 Baso # (Auto) 0.02 Immature Gran # (Auto) 0.02 Hypochromasia Present Anisocytosis Present Microcytosis Present Vitamin B12 425 Folate 9.14 TSH 3.080 Stool Occult Bld Scrn 10/12/19 10/13/19 22:25 07:07 WBC 6.19 RBC 3.89 L Hgb 8.5 L Hct 28.3 L MCV 72.8 L MCH 21.9 L MCHC 30.0 L RDW Std Deviation 50.7 H RDW Coeff of [place] 19.6 H Plt Count 335 MPV 9.9 Immature Gran % (Auto) 0.2 Neut % (Auto) 73.3 Lymph % (Auto) 12.4 [place] % (Auto) 9.9 Eos % (Auto) 4.0 Baso % (Auto) 0.2 Neut # (Auto) 4.54 Lymph # (Auto) 0.77 L [place] # (Auto) 0.61 H Eos # (Auto) 0.25 Baso # (Auto) 0.01 Immature Gran # (Auto) 0.01 Hypochromasia Present Anisocytosis Microcytosis Present Vitamin B12 Folate TSH Stool Occult Bld Scrn Negative
[2019-10-13] MEDS: ATORVASTATIN 10 MG TAB PO SCH (09:18)
[2019-10-13] MEDS: lisinopriL 40 MG TAB PO SCH (09:18)
[2019-10-13] MEDS: CHOLECALCIFEROL 1,000 UNITS 25 MCG TAB PO SCH (09:18)
[2019-10-13] MEDS: LETROZOLE 2.5 MG TAB PO SCH (09:19)
[2019-10-13] MEDS: PANTOprazole 40 MG in SYRINGE 0 ML IV SCH ×2 (09:19→20:22)
--- NOTE | 2019-10-13 11:49 | Hospitalist Progress Note ---
Date of Service October 13, 2019 Assessment & Plan (1) Symptomatic anemia: as per admission note on 10/12/2019 "This is a 74-year-old female with past medical history significant for hypothyroidism, recurrent metastatic breast cancer, chronic kidney disease stage III, hiatal hernia, microcytic anemia, who presents because of feeling weak, not feeling good. The patient's about a month ago and she thought she is feeling depressed, tired, poor appetite, and poor sleep. Her family doctor increased her levothyroxine to 50 mcg. But she was not doing good workup was done as outpatient with CBC which showed significant anemia with hemoglobin of 5.9 and she was advised to come to the ER. Currently, her hemoglobin is 5.7, and hemodynamically stable. Denies any blood in the stools or black stools. Hemoccult was faintly positive in the ER." -microcytic anemia but iron studies were not drawn prior to transfusion -patient s/p 2 units of PRBC from admission and follow up Hgb is 8.4 -normal serum B12 and normal serum folic acid levels -FOBT on 10/12/2019 is negative -CBC stable on 10/13/2019, patient continues to be hemodynamically stable. no shortness of breath, no chest pain, no abdominal pain, no nausea, no vomiting. patient is to drink the Golytely on 10/13/2019 with plans for upper endoscopy and colonoscopy by gastroenterology service on Monday October 14, 2019 for the anemia workup History of metastatic breast cancer, recurrent, status post bilateral mastectom ies in 2012 -currently on letrozole. Follows with hematology/oncology Dr. Anuel Hernandez -if future GI workup is unremarkable, may have to consider whether oncology history plays a role in the anemia Hypothyroidism -Continue Synthroid -TSH 3.080 Hypertension -on lisinopril Hyperlipidemia -on statin. Deep vein thrombosis prophylaxis, sequential compression devices. Admission and Anticipated Discharge Date Admission Date: October 11, 2019 Subjective CBC stable on 10/13/2019, patient continues to be hemodynamically stable. no shortness of breath, no chest pain, no abdominal pain, no nausea, no vomiting. patient is to drink the Golytely on 10/13/2019 with plans for upper endoscopy and colonoscopy by gastroenterology service on Monday October 14, 2019 for the anemia workup Review of Systems Review of Systems: All systems reviewed & are unremarkable except as noted in Subjective Physical Exam Constitutional: comfortable Eyes: PERRL, conjunctivae normal, anicteric sclerae EOM intact bilaterally ENMT: external ear and nose normal, oropharynx normal Neck: trachea midline, no thyromegaly normal visual inspection Respiratory: normal respiratory effort, lungs clear to auscultation Cardiovascular: Rate/Rhythm: regular rate Gastrointestinal (Abdomen): normal bowel sounds, soft, nontender, no hepatosplenomegaly Musculoskeletal: Head/Neck/Chest: normocephalic and head atraumatic Neurologic: PERRL, EOMI, accommodation nl, no face palsy, no dysarthria CN's II-XI intact bilaterally Psychiatric: A+Ox3, euthymic affect Results & Data Results & Data ([facility]) Vital Signs (Past 12 Hours) Vital Signs Temp Pulse Pulse Resp BP BP Pulse Ox 10/13/19 09:15 36.9 C 68 16 148/72 H 97 10/13/19 04:29 36.7 C 86 18 116/63 10/13/19 00:39 74 10/13/19 00:01 37.2 C 83 19 119/55 L 97
[2019-10-13] MEDS ORDERED: LAVAGE SOLUTION 4000ML PO SCH ×2 (18:00)
[2019-10-14 04:43] LABS: Reticulocyte % 1.4 % (0.5-2.0); Reticulocytes # 0.05 10^6/uL (0.02-0.10)
[2019-10-14] MEDS ORDERED: ALENDRONATE SODIUM 70 MG TAB PO SCH (06:30)
--- NOTE | 2019-10-14 08:09 | Hospitalist Progress Note ---
Date of Service October 14, 2019 Assessment & Plan (1) Symptomatic anemia: possible iron deficiency anemia -as per admission note on 10/12/2019 "This is a 74-year-old female with past medical history significant for hypothyroidism, recurrent metastatic breast cancer, chronic kidney disease stage III, hiatal hernia, microcytic anemia, who presents because of feeling weak, not feeling good. The patient's about a month ago and she thought she is feeling depressed, tired, poor appetite, and poor sleep. Her family doctor increased her levothyroxine to 50 mcg. But she was not doing good workup was done as outpatient with CBC which showed significant anemia with hemoglobin of 5.9 and she was advised to come to the ER. Currently, her hemoglobin is 5.7, and hemodynamically stable. Denies any blood in the stools or black stools. Hemoccult was faintly positive in the ER." -microcytic anemia but full iron studies were not drawn prior to transfusion other than low ferritin levels -patient s/p 2 units of PRBC from admission and follow up Hgb is 8.4 -normal serum B12 and normal serum folic acid levels -FOBT on 10/12/2019 is negative -CBC stable on 10/13/2019, patient continues to be hemodynamically stable. no shortness of breath, no chest pain, no abdominal pain, no nausea, no vomiting. patient is to drink the Gol[place] on 10/13/2019 with plans for upper endoscopy and colonoscopy by gastroenterology service on Monday October 14, 2019 for the anemia workup -10/14/2019: Hgb stable. continues to be hemodynamically stable. no gross bleeding reported. patient awaiting gastroenterology for EGD/colonoscopy. Discussed with patient that if those tests are unremarkable, then there is good probability that anemia from iron deficiency and can start iron supplements after EGD/colonoscopy. History of metastatic breast cancer, recurrent, status post bilateral mastectomies in 2013 -currently on letrozole. Follows with hematology/oncology Dr. Anuel Hernandez - 10/13/2019 discussed anemia with her oncology Dr. Hernandez. he recommends retic count and LDH levels to be measured but also understands that labs at this point may be less informative on cause of anemia as patient already had blood transfusions on this admission. But he thinks that with normal WBC and normal platelets that bone marrow infiltration as cause of anemia to be unlikely -next appointment 10/22/2019 1:15 PM Provider Anuel Hernandez MD Department Hematology/Oncology [facility] Hypothyroidism -Continue Synthroid -TSH 3.080 Hypertension -on lisinopril Hyperlipidemia -on statin. Deep vein thrombosis prophylaxis, sequential compression devices. Admission and Anticipated Discharge Date Admission Date: October 11, 2019 Subjective Hgb stable. continues to be hemodynamically stable. no gross bleeding reported. patient awaiting gastroenterology for EGD/colonoscopy. Discussed with patient that if those tests are unremarkable, then there is good probability that anemia from iron deficiency and can start iron supplements after EGD/colonoscopy. no abdominal pain. no chest pain. no shortness of breath. no dizziness. no headache. Review of Systems Review of Systems: All systems reviewed & are unremarkable except as noted in Subjective Physical Exam Constitutional: comfortable Eyes: PERRL, conjunctivae normal, anicteric sclerae EOM intact bilaterally ENMT: external ear and nose normal, oropharynx normal Neck: trachea midline, no thyromegaly normal visual inspection Respiratory: normal respiratory effort, lungs clear to auscultation Cardiovascular: Rate/Rhythm: regular rate Gastrointestinal (Abdomen): normal bowel sounds, soft, nontender, no hepatosplenomegaly Musculoskeletal: Head/Neck/Chest: normocephalic and head atraumatic Neurologic: PERRL, EOMI, accommodation nl, no face palsy, no dysarthria CN's II-XI intact bilaterally Psychiatric: A+Ox3, euthymic affect Results & Data Results & Data ([facility]) Vital Signs (Past 12 Hours) Vital Signs Temp Pulse Pulse Resp BP BP Pulse Ox 10/14/19 02:48 36.7 C 78 18 115/58 L 98 10/13/19 23:05 36.6 C 76 18 136/64 98 10/13/19 22:12 36.5 C 78 137/68 97
--- NOTE | 2019-10-14 08:35 | Gastroenterology Progress Note ---
Date of Service October 14, 2019 Assessment & Plan (1) Symptomatic anemia: Pt is a 74 y/o female admitted w microcytic anemia. Hx of breast ca s/p XRT, bilateral mastectomy. - EGD & Colonoscopy today by Dr. Eron Turner. Keep NPO - Consider CT abd/pelvis to r/o occult mass - GI will give further recs after endoscopies completed. Admission and Anticipated Discharge Date Admission Date: October 11, 2019 Supervising Physician Co-Signing Physician Notes I have personally seen and examined the patient with LAUREN Arredondo. Her note reflects my exam and findings. I agree with her impression and plans. Getting EGD/[place] today. Most c/w GI bleeding from ASA use. Patient should stay on BID PPI indefinitely if she needs to remain on ASA as outpatient. Eron Turner M.D. Subjective Pt scheduled for EGD/Colonoscopy today. She completed bowel prep, had been NPO since midnight. Denies any CP, SOB, abd pain, n/v. Denies seeing dark or tarry stools, rectal bleeding. Review of Systems Review of Systems: All systems reviewed & are unremarkable except as noted in HPI & below Physical Exam Constitutional: WD/WN, vitals as above well groomed, cooperative and comfortable Eyes: PERRL, conjunctivae normal, anicteric sclerae ENMT: external ear and nose normal, oropharynx normal Respiratory: normal respiratory effort, lungs clear to auscultation Cardiovascular: RRR, no murmur, no edema Gastrointestinal (Abdomen): normal bowel sounds, soft, nontender, no hepatosplenomegaly Skin: no rashes, warm and dry no jaundice Psychiatric: A+Ox3, euthymic affect Lymphatic: no lymphedema Results & Data ([facility]) Vital Signs (Past 12 Hours) Vital Signs Temp Pulse Pulse Resp BP BP Pulse Ox 10/14/19 02:48 36.7 C 78 18 115/58 L 98 10/13/19 23:05 36.6 C 76 18 136/64 98 10/13/19 22:12 36.5 C 78 137/68 97
[2019-10-14] MEDS: ATORVASTATIN 10 MG TAB PO SCH (08:53)
[2019-10-14] MEDS: LETROZOLE 2.5 MG TAB PO SCH (08:53)
[2019-10-14] MEDS: LEVOTHYROXINE SODIUM 50 MCG TABLET PO SCH (08:54)
[2019-10-14] MEDS: CHOLECALCIFEROL 1,000 UNITS 25 MCG TAB PO SCH (08:54)
[2019-10-14] MEDS: lisinopriL 40 MG TAB PO SCH (08:54)
[2019-10-14] MEDS: PANTOprazole 40 MG in SYRINGE 0 ML IV SCH (09:10)
--- NOTE | 2019-10-14 09:26 | History & Physical Report ---
Date of Service October 14, 2019 Assessment & Plan (1) Microcytic anemia: stable for EGD/[place] History of Present Illness Chief Complaint: microcytic anemia Primary Care Provider: Kajal Whitaker DO Pt with microcytic anemia for colonoscopy/EGD - tier 2 Allergies Allergy/AdvReac Type Severity Reaction Status Date / Time No Known Allergies Allergy Verified 10/11/19 21:15 Home Medications Home Medications Medication Instructions Recorded Confirmed Type alendronate 70 mg tablet 70 mg PO WEEKLY tab 11/16/18 10/11/19 History aspirin 81 mg tablet,delayed 81 mg PO QAM 11/16/18 10/11/19 History release atorvastatin 10 mg tablet 10 mg PO QAM 11/16/18 10/11/19 History cholecalciferol (vitamin D3) 50 2,000 units PO QAM 11/16/18 10/11/19 History mcg (2,000 unit) capsule levothyroxine 50 mcg capsule 50 mcg PO QAM 11/16/18 10/11/19 History letrozole 2.5 mg PO QAM 10/11/19 10/11/19 History lisinopril 40 mg PO QAM 10/11/19 10/11/19 History Past Med/Surg History Medical History Breast cancer, right breast h/o infiltrating ductal carcinoma in lower outer quadrant - s/p right mastectomy + radiation Chronic kidney disease Follows w/ Dr. 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 Maya H/O partial mastectomy (07/2010) Right sentinel node and right partial mastectomy Dr. Maya History of esophagogastroduodenoscopy (EGD) History of partial mastectomy (08/2010) Re-excision of right breast Dr. Maya S/P appendectomy Age 16 S/P biopsy (12/20/18) Open Excisional Biopsy Anterior Chest Wall with Frozen Section Dr. Friend 12-20-18 Social History Preferred Language: Mohawk Communication Ability: Effective [employer] Manager Required: No Beliefs That Will Affect Care: None marital status: / Current Living Situation: Alone Other Information That Helps Us Care for You: No Feels Safe at Home: Yes Safety Concerns: Feels Safe At This Time Smoking Status: Never smoker Do You Dip or Chew Tobacco: No ; Second Hand Exposure: No ; Tobacco Cessation Education Requested by Patient: No Hx Alcohol Use: No Hx Substance Use: No Physical Exam Constitutional: WD/WN, vitals as above Respiratory: normal respiratory effort, lungs clear to auscultation Cardiovascular: RRR, no murmur, no edema Gastrointestinal (Abdomen): normal bowel sounds, soft, nontender, no hepatosplenomegaly Results & Data Vital Signs (Past 12 Hours) Vital Signs Temp Pulse Pulse Pulse Resp BP BP 10/14/19 08:00 37.0 C 78 88 20 139/57 L 10/14/19 02:48 36.7 C 78 18 115/58 L 10/13/19 23:05 36.6 C 76 18 136/64 10/13/19 22:12 36.5 C 78 137/68 Pulse Ox 10/14/19 08:00 96 10/14/19 02:48 98 10/13/19 23:05 98 10/13/19 22:12 97 Code Status & VTE Plan VTE Prophylaxis Plan VTE Prophylaxis will be ordered: Yes
--- NOTE | 2019-10-14 09:56 | Anesthesiology Consultation ---
Date of Service October 14, 2019 Assessment & Plan Chart Review Chart Review: Acceptable Risk for Surgery Consults Requested none History Surgery Operation Date: 10/14/19 16:30 Proposed Procedures p Colonoscopy EGD Dr Johnny Turner Height/Weight Height: 5 ft 3 in Weight: 77.7 kg Allergies Allergy/AdvReac Type Severity Reaction Status Date / Time No Known Allergies Allergy Verified 10/11/19 21:15 Medications Home Medications Medication Instructions Recorded Confirmed Last Taken alendronate 70 mg tablet 70 mg PO WEEKLY tab 11/16/18 10/11/19 10/07/19 aspirin 81 mg tablet,delayed 81 mg PO QAM 11/16/18 10/11/19 10/11/19 release atorvastatin 10 mg tablet 10 mg PO QAM 11/16/18 10/11/19 10/11/19 cholecalciferol (vitamin D3) 50 2,000 units PO QAM 11/16/18 10/11/19 10/11/19 mcg (2,000 unit) capsule levothyroxine 50 mcg capsule 50 mcg PO QAM 11/16/18 10/11/19 10/11/19 letrozole 2.5 mg PO QAM 10/11/19 10/11/19 10/11/19 lisinopril 40 mg PO QAM 10/11/19 10/11/19 10/11/19 Active Medications Generic Name Dose Route Start Last Admin Trade Name Freq PRN Reason Stop Dose Admin Alendronate Sodium 70 mg 10/14/19 06:30 10/14/19 08:54 Fosamax PO 11/13/19 06:29 70 mg Mo@0630 ALEX Administration Atorvastatin Calcium 10 mg 10/12/19 09:00 10/14/19 08:53 Lipitor PO 11/11/19 08:59 10 mg QAM ALEX Administration Pantoprazole Sodium 40 mg/ 10 mls @ 5 mls/min 10/12/19 00:12 10/14/19 09:10 Syringe IV 11/11/19 00:11 5 mls/min BID ALEX Administration Letrozole 2.5 mg 10/12/19 09:00 10/14/19 08:53 Femara PO 11/11/19 08:59 2.5 mg QAM ALEX Administration Levothyroxine Sodium 50 mcg 10/12/19 06:30 10/14/19 08:54 Synthroid PO 11/11/19 06:29 50 mcg DAILYBB ALEX Administration Lisinopril 40 mg 10/12/19 09:00 10/14/19 08:54 Zestril PO 11/11/19 08:59 40 mg QAM ALEX Administration Vitamin D 2,000 units 10/12/19 09:00 10/14/19 08:54 Vitamin D3 PO 11/11/19 08:59 2,000 units QAM ALEX Administration NPO Date Last Intake of Fluids: 10/14/19 Time Last Intake of Fluids: 00:01 Date Last Intake of Solids: 10/13/19 Time Last Intake of Solids: 12:00 Past Medical History Medical History Breast cancer, right breast h/o infiltrating ductal carcinoma in lower outer quadrant - s/p right mastectomy + radiation Chronic kidney disease Follows w/ Dr. 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 Maya H/O partial mastectomy (07/2010) Right sentinel node and right partial mastectomy Dr. Maya History of esophagogastroduodenoscopy (EGD) History of partial mastectomy (08/2010) Re-excision of right breast Dr. Maya S/P appendectomy Age 16 S/P biopsy (12/20/18) Open Excisional Biopsy Anterior Chest Wall with Frozen Section Dr. Friend 12-20-18 Social History Smoking Status: Never smoker Do You Dip or Chew Tobacco: No Hx Alcohol Use: No Hx Substance Use: No substance use type: does not use Physical Exam Vital Signs Last Vital Signs Temp 37.0 C 10/14/19 08:00 Pulse 88 10/14/19 08:00 Resp 20 10/14/19 08:00 BP 139/57 L 10/14/19 08:00 Pulse Ox 96 10/14/19 08:00 Testing Laboratory Results 10/13/19 07:07 10/12/19 05:00 Urine Color Yellow 06/27/20 01:00 Urine Appearance Clear (Clear) 10/12/19 01:00 Urine pH 5.5 (4.5-7.5) 10/12/19 01:00 Ur Specific [place] 1.016 (1.000-1.030) 10/12/19 01:00 Urine Protein Negative (Negative) 10/12/19 01:00 Urine Glucose (UA) Negative (Negative) 10/12/19 01:00 Urine Ketones Negative (Negative) 10/12/19 01:00 Urine Nitrite Negative (Negative) 10/12/19 01:00 Ur Leukocyte Esterase 3+ (Negative) H 10/12/19 01:00 Urine WBC (Auto) >30 /hpf (0-5) H 10/12/19 01:00 Urine RBC (Auto) 0-4 /hpf (0-4) 10/12/19 01:00 U Hyaline Cast (Auto) 5-10 /lpf (0-5) H 10/12/19 01:00 U Epithel Cells (Auto) 5-10 /lpf (0-5) H 10/12/19 01:00 Urine Bacteria (Auto) Negative (Negative) 10/12/19 01:00 Blood Type O Positive 10/11/19 19:35 Antibody Screen NEGATIVE 10/11/19 19:35 10/12/19 01:00 Urine Culture - Final Urine,Clean Catch More than three types of organisms present, all moderate counts mixed probable skin gary. No further identifications or sensitivities to follow.
[2019-10-14] MEDS ORDERED: LIDOCAINE HCL 2% 2 ML VIAL/AMP(20MG/ML) INFIL ONE ×2 (10:02→10:29)
[2019-10-14] MEDS ORDERED: PROPOFOL IV EMULSION 10 MG/ML 20 ML VIAL IV ONE ×2 (10:02→10:29)
--- NOTE | 2019-10-14 10:49 | Anesthesiology Progress Note ---
Date of Service October 14, 2019 Anesthesia Post Procedure Vital Signs Vital Signs: Temp Pulse Pulse Pulse Resp BP BP 10/14/19 10:32 80 20 10/14/19 09:51 36.9 C 86 18 10/14/19 08:00 37.0 C 78 88 20 139/57 L 10/14/19 02:48 36.7 C 78 18 115/58 L 10/13/19 23:05 36.6 C 76 18 136/64 10/13/19 22:12 36.5 C 78 137/68 10/13/19 15:19 36.9 C 81 19 115/49 L 10/13/19 12:46 36.9 C 83 16 119/62 BP Pulse Ox 10/14/19 10:32 98/57 L 97 10/14/19 09:51 159/75 H 96 10/14/19 08:00 96 10/14/19 02:48 98 10/13/19 23:05 98 10/13/19 22:12 97 10/13/19 15:19 96 10/13/19 12:46 97 Transfer of Care Handoff Completed per policy Notes Mental Status: alert / awake / arousable and participated in evaluation Patient Amnestic to Procedure: Yes Nausea / Vomiting: adequately controlled Pain: adequately controlled Airway Patency, RR, SpO2: stable & adequate BP & HR: stable & adequate Hydration State: stable & adequate Anesthetic Complications: no major complications apparent
--- NOTE | 2019-10-14 11:00 | GI REPORT ---
Patient Name: Stella Larkin Procedure Date: 10/14/2019 10:06 AM Date of : 1945 Admit Type: Inpatient Age: 74 Gender: Female Attending MD: Eron Turner MD Procedure: Upper GI endoscopy Providers: Eron Turner MD Referring MD: Robert Caban M.d. Indications: Acute post hemorrhagic anemia, Iron deficiency anemia Medicines: See the Anesthesia note for documentation of the administered medications Complications: No immediate complications. Estimated Blood Loss: Estimated blood loss: none. Procedure: Pre-Anesthesia Assessment: - Prior to the procedure, a History and Physical was performed, and patient medications, allergies and sensitivities were reviewed. The patient's tolerance of previous anesthesia was reviewed. - The risks and benefits of the procedure and the sedation options and risks were discussed with the patient. All questions were answered and informed consent was obtained. - Patient identification and proposed procedure were verified prior to the procedure by the physician and the nurse. The procedure was verified in the pre-procedure area. - Pre-procedure physical examination revealed no contraindications to sedation. - After reviewing the risks and benefits, the patient was deemed in satisfactory condition to undergo the procedure. After obtaining informed consent, the endoscope was passed under direct vision. Throughout the procedure, the patient's blood pressure, pulse, and oxygen saturations were monitored continuously. The Endoscope was introduced through the mouth, and advanced to the third part of duodenum. The upper GI endoscopy was accomplished without difficulty. The patient tolerated the procedure well. Findings: The esophagus was normal. Many non-bleeding superficial gastric ulcers with no stigmata of bleeding were found in the gastric antrum. The examined duodenum was normal. The cardia and gastric fundus were normal on retroflexion except for a small hiatal hernia. Impression: - Normal esophagus. - Non-bleeding gastric ulcers with no stigmata of bleeding. Most likely from ASA use. - Small sliding hiatal hernia. - Normal examined duodenum. - No specimens collected. Recommendation: - Perform a colonoscopy today. Eron Turner M.D. Eron Turner MD 10/14/2019 11:00:07 AM This report has been signed electronically. Note Initiated On: 10/14/2019 10:06 AM Number of Addenda: 0 I attest to the content of the Intraoperative Record and orders documented therein, exceptions below {[id number]}
--- NOTE | 2019-10-14 11:06 | GI REPORT ---
Patient Name: Stella Larkin Procedure Date: 10/14/2019 10:09 AM Date of : 1945 Admit Type: Inpatient Age: 74 Gender: Female Attending MD: Eron Turner MD Procedure: Colonoscopy Providers: Eron Turner MD Referring MD: Robert Caban M.d. Indications: Acute post hemorrhagic anemia, Iron deficiency anemia Medicines: See the Anesthesia note for documentation of the administered medications Complications: No immediate complications. Estimated Blood Loss: Estimated blood loss was minimal. Procedure: Pre-Anesthesia Assessment: - See the other procedure note for documentation of the pre-procedure assessment. After I obtained informed consent, the scope was passed under direct vision. Throughout the procedure, the patient's blood pressure, pulse, and oxygen saturations were monitored continuously. The Colonoscope was introduced through the anus and advanced to the cecum, identified by appendiceal orifice and ileocecal valve. The colonoscopy was performed without difficulty. The patient tolerated the procedure well. The quality of the bowel preparation was good. Findings: The perianal and digital rectal examinations were normal. A small polyp was found in the hepatic flexure. The polyp was sessile. The polyp was removed with a cold snare. Resection and retrieval were complete. Verification of patient identification for the specimen was done by the physician and nurse using the patient's name and medical record number. Estimated blood loss was minimal. A 10 mm polyp was found in the rectum. The polyp was semi-sessile. The polyp was removed with a hot snare. Resection and retrieval were complete. Verification of patient identification for the specimen was done by the physician and nurse using the patient's name and medical record number. Estimated blood loss: none. Many small-mouthed diverticula were found in the sigmoid colon. The exam was otherwise without abnormality on direct and retroflexion views. Impression: - One small polyp at the hepatic flexure, removed with a cold snare. Resected and retrieved. - One 10 mm polyp in the rectum, removed with a hot snare. Resected and retrieved. - Diverticulosis in the sigmoid colon. - The examination was otherwise normal on direct and retroflexion views. Recommendation: - Await pathology results. - [facility]. Ambrose Schroeder MD 10/14/2019 11:05:51 AM This report has been signed electronically. Note Initiated On: 10/14/2019 10:09 AM Number of Addenda: 0 I attest to the content of the Intraoperative Record and orders documented therein, exceptions below {[id number]}
[2019-10-14] MEDS: PANTOprazole 40 MG TAB PO SCH (21:02)
[2019-10-15] MEDS: LEVOTHYROXINE SODIUM 50 MCG TABLET PO SCH (06:45)
[2019-10-15] MEDS: LETROZOLE 2.5 MG TAB PO SCH (07:32)
[2019-10-15] MEDS: PANTOprazole 40 MG TAB PO SCH (07:33)
[2019-10-15] MEDS: CHOLECALCIFEROL 1,000 UNITS 25 MCG TAB PO SCH (07:33)
[2019-10-15] MEDS: lisinopriL 40 MG TAB PO SCH (07:33)
[2019-10-15] MEDS: ATORVASTATIN 10 MG TAB PO SCH (07:34)
[2019-10-15 07:45] LABS: Hematocrit (blood only) 27.5 % (37-47); Hemoglobin 8.3 g/dL (12.0-16.0); Mean Corpuscular Hgb Conc 30.2 g/dL (32-36); Mean Corpuscular Volume 72.8 fL (80-100); Mean Platelet Volume 10.1 fL (7.4-10.4); Platelet Count 315 K/uL (130-400); RDW Coefficient of Variation 20.3 % (11.5-14.5); RDW Standard Deviation 53.7 fL (36.4-46.3); Red Blood Count 3.78 M/uL (4.2-5.4); White Blood Count 6.27 K/uL (4.8-10.8)
[2019-10-15 07:46] LABS: Anisocytosis Present; Basophils # (auto) 0.01 K/uL (0-0.2); Basophils % (auto) 0.2 %; Eosinophils # (auto) 0.34 K/uL (0-0.5); Eosinophils % (auto) 5.4 %; Giant Platelets 1+; Hypochromasia Present; Immature Granulocytes # (auto) 0.01 K/uL (0.00-0.02); Immature Granulocytes % (auto) 0.2 %; Lymphocytes # (auto) 0.88 K/uL (1.2-3.4); Monocytes # (auto) 0.69 K/uL (0.11-0.59); Neutrophils # (auto) 4.34 K/uL (1.4-6.5); Neutrophils % (auto) 69.2 %
[2019-10-15] MEDS ORDERED: SENNA 8.6 MG TAB PO SCH (09:00)
--- NOTE | 2019-10-15 09:19 | Hospitalist Progress Note ---
Date of Service October 15, 2019 Assessment & Plan (1) Symptomatic anemia: possible iron deficiency anemia -as per admission note on 10/12/2019 "This is a 74-year-old female with past medical history significant for hypothyroidism, recurrent metastatic breast cancer, chronic kidney disease stage III, hiatal hernia, microcytic anemia, who presents because of feeling weak, not feeling good. The patient's about a month ago and she thought she is feeling depressed, tired, poor appetite, and poor sleep. Her family doctor increased her levothyroxine to 50 mcg. But she was not doing good workup was done as outpatient with CBC which showed significant anemia with hemoglobin of 5.9 and she was advised to come to the ER. Currently, her hemoglobin is 5.7, and hemodynamically stable. Denies any blood in the stools or black stools. Hemoccult was faintly positive in the ER." -microcytic anemia but full iron studies were not drawn prior to transfusion other than low ferritin levels -patient s/p 2 units of PRBC from admission and follow up Hgb is 8.4 -normal serum B12 and normal serum folic acid levels -FOBT on 10/12/2019 is negative -CBC stable on 10/13/2019, patient continues to be hemodynamically stable. no shortness of breath, no chest pain, no abdominal pain, no nausea, no vomiting. patient is to drink the Golytely on 10/13/2019 with plans for upper endoscopy and colonoscopy by gastroenterology service on Monday October 14, 2019 for the anemia workup -10/14/2019: Hgb stable. continues to be hemodynamically stable. no gross bleeding reported. patient awaiting gastroenterology for EGD/colonoscopy. Discussed with patient that if those tests are unremarkable, then there is good probability that anemia from iron deficiency and can start iron supplements after EGD/colonoscopy. -10/15/2019: Hgb 8.3 stable. . Patient started on ferrous iron supplement BID and senna. She is advised that sometimes iron supplements can cause constipation or darkening of the stools. she has been advised to stop aspirin when she goes home. Patient wishes to be discharged today and colonoscopy pathology report pending. Patient willing to stay a little longer today to see if pathology report returns but if not available by later today she wishes to be discharged and follow up with primary care doctor -primary care doctor appointment 10/21/2019 11:00 AM Provider Neville Anaya MD Department Family Practice [facility] History of metastatic breast cancer, recurrent, status post bilateral mastectomies in 2013 -currently on letrozole. Follows with hematology/oncology Dr. Anuel Hernandez - 10/13/2019 discussed anemia with her oncology Dr. Hernandez. he recommends retic count and LDH levels to be measured but also understands that labs at this point may be less informative on cause of anemia as patient already had blood transfusions on this admission. But he thinks that with normal WBC and normal platelets that bone marrow infiltration as cause of anemia to be unlikely -next appointment 10/22/2019 1:15 PM Provider Anuel Hernandez MD Department Hematology/Oncology [facility] Hypothyroidism -Continue Synthroid -TSH 3.080 Hypertension -on lisinopril Hyperlipidemia -on statin. Deep vein thrombosis prophylaxis, sequential compression devices while inpatient Admission and Anticipated Discharge Date Admission Date: October 11, 2019 Subjective -10/15/2019: Hgb 8.3 stable. Patient started on ferrous iron supplement BID and senna. She is advised that sometimes iron supplements can cause constipation or darkening of the stools. she has been advised to stop aspirin when she goes home. Patient wishes to be discharged today and colonoscopy pathology report pending. Patient willing to stay a little longer today to see if pathology report returns but if not available by later today she wishes to be discharged and follow up with primary care doctor no on room air, no chest pain, no shortness of breath, no dizziness, no he adache. no vomiting, no abdominal pain, no nausea, no vomiting Review of Systems Review of Systems: All systems reviewed & are unremarkable except as noted in Subjective Physical Exam Constitutional: comfortable Eyes: PERRL, conjunctivae normal, anicteric sclerae EOM intact bilaterally ENMT: external ear and nose normal, oropharynx normal Neck: trachea midline, no thyromegaly normal visual inspection Respiratory: normal respiratory effort, lungs clear to auscultation Cardiovascular: Rate/Rhythm: regular rate Gastrointestinal (Abdomen): normal bowel sounds, soft, nontender, no hepatosplenomegaly Musculoskeletal: Head/Neck/Chest: normocephalic and head atraumatic Neurologic: PERRL, EOMI, accommodation nl, no face palsy, no dysarthria CN's II-XI intact bilaterally Psychiatric: A+Ox3, euthymic affect Results & Data Results & Data ([facility]) Vital Signs (Past 12 Hours) Vital Signs Temp Pulse Resp BP Pulse Ox 10/15/19 06:45 36.7 C 60 16 125/73 95 10/14/19 23:03 37.1 C 80 16 130/74 93 10/14/19 21:18 37.1 C 80 18 151/71 H 97
--- NOTE | 2019-10-15 10:10 | Discharge Summary ---
Date of Service October 15, 2019 Admission HPI Per Admitting Provider Pt with microcytic anemia for colonoscopy/EGD - tier 2 Principal Diagnosis Symptomatic anemia History of metastatic breast cancer, recurrent, status post bilateral mastec tomies in 2013 Hypothyroidism Hypertension Gastric ulcers, Rectal polyp Discharge Exam Constitutional comfortable Eyes PERRL, conjunctivae normal, anicteric sclerae EOM intact bilaterally ENMT external ear and nose normal, oropharynx normal Neck trachea midline, no thyromegaly normal visual inspection Respiratory normal respiratory effort, lungs clear to auscultation Cardiovascular Rate/Rhythm: regular rate Gastrointestinal (Abdomen) normal bowel sounds, soft, nontender, no hepatosplenomegaly Musculoskeletal Head/Neck/Chest: normocephalic and head atraumatic Neurologic PERRL, EOMI, accommodation nl, no face palsy, no dysarthria CN's II-XI intact bilaterally Psychiatric A+Ox3, euthymic affect Discharge Data Allergies Allergy/AdvReac Type Severity Reaction Status Date / Time No Known Allergies Allergy Verified 10/11/19 21:15 Consultations 10/11/19 20:47 ED Decision to Admit Stat 10/12/19 00:12 Consult Case Management - Discharge Planning Routine 10/12/19 08:00 Consult Gastroenterology Routine Procedures Performed Operation Date: 10/14/19 16:30 Actual Procedures p Colonoscopy Polypectomy - Eron Turner s Esophagogastroduodenoscopy - Eron Turner Hospital Course (1) Symptomatic anemia: possible iron deficiency anemia -as per admission note on 10/12/2019 "This is a 74-year-old female with past medical history significant for hypothyroidism, recurrent metastatic breast cancer, chronic kidney disease stage III, hiatal hernia, microcytic anemia, who presents because of feeling weak, not feeling good. The patient's e xpired about a month ago and she thought she is feeling depressed, tired, poor appetite, and poor sleep. Her family doctor increased her levothyroxine to 50 mcg. But she was not doing good workup was done as outpatient with CBC which showed significant anemia with hemoglobin of 5.9 and she was advised to come to the ER. Currently, her hemoglobin is 5.7, and hemodynamically stable. Denies any blood in the stools or black stools. Hemoccult was faintly positive in the ER." -microcytic anemia but full iron studies were not drawn prior to transfusion other than low ferritin levels -patient s/p 2 units of PRBC from admission and follow up Hgb is 8.4 -normal serum B12 and normal serum folic acid levels -FOBT on 10/12/2019 is negative -CBC stable on 10/13/2019, patient continues to be hemodynamically stable. no shortness of breath, no chest pain, no abdominal pain, no nausea, no vomiting. patient is to drink the Golytely on 10/13/2019 with plans for upper endoscopy and colonoscopy by gastroenterology service on Monday October 14, 2019 for the anemia workup -10/14/2019: Hgb stable. continues to be hemodynamically stable. no gross bleeding reported. patient awaiting gastroenterology for EGD/colonoscopy. Discussed with patient that if those tests are unremarkable, then there is good probability that anemia from iron deficiency and can start iron supplements after EGD/colonoscopy. -10/15/2019: Hgb 8.3 stable. . Patient started on ferrous iron supplement BID and senna. She is advised that sometimes iron supplements can cause constipation or darkening of the stools. she has been advised to stop aspirin when she goes home. Patient wishes to be discharged today and colonoscopy pathology report pending. Patient willing to stay a little longer today to see if pathology report returns but if not available by later today she wishes to be discharged and follow up with primary care doctor -primary care doctor appointment 10/21/2019 11:00 AM Provider Neville Anaya MD Department Family [facility] History of metastatic breast cancer, recurrent, status post bilateral mastectomies in 2012 -currently on letrozole. Follows with hematology/oncology Dr. Anuel Hernandez - 10/13/2019 discussed anemia with her oncology Dr. Hernandez. he recommends retic count and LDH levels to be measured but also understands that labs at this point may be less informative on cause of anemia as patient already had blood transfusions on this admission. But he thinks that with normal WBC and normal platelets that bone marrow infiltration as cause of anemia to be unlikely -next appointment 10/22/2019 1:15 PM Provider Anuel Hernandez MD Department Hematology/Oncology [facility] Hypothyroidism -Continue Synthroid -TSH 3.080 Hypertension -on lisinopril Hyperlipidemia -on statin. Deep vein thrombosis prophylaxis, sequential compression devices while inpatient Total Time Total Time Spent Total Time Spent (In Minutes): 40 minutes Total Time Includes: Examination of the Patient, Discharge Planning, Medication Reconciliation and Communication With Other Providers Discharge Plan Discharge Items Patient Disposition: Home - Self-Care Reason For Visit: ANEMIA Discharge Diagnosis: Symptomatic anemia History of metastatic breast cancer, recurrent, status post bilateral mastectomies in 2013 Hypothyroidism Hypertension Gastric ulcers, Rectal polyp Condition on Discharge: Good Activity: Resume your previous activity Non-emergency contact: Primary Care Provider Call non-emergency contact if: you have any medication questions Follow-up/Referrals: Kajal Whitaker DO [Primary Care Provider] - Diet: Regular Addtl Attending Provider Instructions: 10/21/2019 11:00 AM Provider Neville Anaya MD Department Family Practice [facility] 10/22/2019 1:15 PM Provider Anuel Hernandez MD Department Hematology/Oncology [facility] stop taking aspirin because of the anemia (low hemoglobin) She is advised that sometimes iron supplements can cause constipation or darkening of the stools. discharge pharmacy [address] [address] Addtl Technical Support Representative Provider Instructions: EGD 10/14/2019 -normal esophagus -non bleeding gastric ulcers with no stigmata of bleeding. Most likely from aspirin use -small sliding hiatal hernia -normal examined duodenum -no specimens collected Colonoscopy 10/14/2019 -one small polyp at the hepatic flexure, removed with a cold snare. Resected and retrieved. -One 10 mm polyp in the rectum, removed with a hot snare. Resected and retrieved. -Diverticulosis in the sigmoid colon -The examination was otherwise normal on direct and retroflexion views Pending Studies at Discharge: Yes Studies:: follow colonoscopy pathology Stand-Alone Forms: [facility], Smoking Cessation Medications and DC Order Prescriptions: New ferrous sulfate 220 mg (44 mg iron)/5 mL elixir 220 mg PO BIDM 30 Days Qty: 300 RF: 0 sennosides [Senokot] 8.6 mg Tablet 8.6 mg PO QAM 30 Days Qty: 30 RF: 0 pantoprazole 40 mg Tablet,Delayed Release (Dr/Ec) 40 mg PO DAILY 30 Days Qty: 30 RF: 0 Continued atorvastatin 10 mg tablet 10 mg PO QAM RF: 0 alendronate 70 mg tablet 70 mg PO WEEKLY RF: 0 levothyroxine 50 mcg capsule 50 mcg PO QAM RF: 0 cholecalciferol (vitamin D3) 2,000 unit capsule 2,000 units PO QAM RF: 0 letrozole 2.5 mg tablet 2.5 mg PO QAM RF: 0 lisinopril 40 mg tablet 40 mg PO QAM RF: 0 Discontinued aspirin 81 mg tablet,delayed release (DR/EC) 81 mg PO QAM RF: 0 Discharge Orders: Discharge Order (Routine); Ordered 10/15/19 Ordered By: Robert Caban Admission Data Admit Date/Time: 10/11/19 21:56 Attending Provider: Robert Caban Admit Provider: Toñito Hernández Primary Care Provider: Kajal Whitaker Other Providers: Toñito Hernández ; Mayra Arias
[2019-10-15] MEDS ORDERED: FERROUS SULFATE 325 MG/7.4 ML UDP PO SCH (17:00)
== END 2019-10-15 13:41 | disposition home or self-care (01) | DRG 378 ==
LOC: ED 18:32 → 1E 21:56 → 2W 10-14 11:56 → 3W 10-14 21:13

== ENCOUNTER 2022-07-17 15:56 | Inpatient (IN) ==
--- NOTE | 2022-07-17 16:16 | ED Triage Note ---
Date of Service July 17, 2022 History of Present Illness This patient was briefly evaluated while in triage. An abbreviated physical exam was performed. This patient is a 77-year-old Female who presents to the ED for evaluation of confusion and right side body issues. Symptoms have been ongoing for at least 2 days. Daughter brings patient to ER for evaluation. Patient very hard of hearing. Physical Exam VITALS: Vitals are noted on the nurse's note and reviewed by myself. Vital signs stable. GENERAL: Well-developed, well-nourished, white female, who is pleasant but asking atypical questions. Initial orders for labs and / or imaging were placed and patient was placed in the waiting area until a bed is available. Please see further documentation for the full ED course.
--- NOTE | 2022-07-17 16:21 | Emergency Department Note ---
Impression & Plan Hallucinations ED Provider Note Provider: Scooby Barlow MD DATE OF SERVICE: 07/16/2022 CHIEF COMPLAINT: Confusion, right-sided issues HISTORY OF PRESENT ILLNESS: Patient is a 77-year-old female history of hypertension brought by daughter last known well about 2 to 3 days ago with onset of confusion and some difficulty moving her right arm and leg. Patient pleasant for asking odd questions. Family states that she has had some visual hallucinations on her window of people and animals. Patient states she thinks they are real. Possibly hearing things but its not clear history. Denies falls. States she has been eating and drinking. Daughter states it seems like the patient's been favoring her right side more than her left. Daughter reports not acting herself. Patient denies any pain. Denies feeling dizzy or any nausea or vomiting. Denies shortness of breath. There is no question of the patient's been taking her home medications correctly. PAST MEDICAL HISTORY: As noted above MEDICATIONS: Reviewed home medications SOCIAL HISTORY: , lives by herself but family frequently checks on her PHYSICAL EXAM: GENERAL: alert and oriented in no acute distress on stretcher Head: normocephalic and atraumatic EYES: No injection, discharge or icterus. PERRL, EOMI. NECK: Trachea midline. Supple. ENT: Mucous membranes pink and moist. Pharynx without erythema or exudate. LUNGS: Airway patent. No retractions. Breath sounds clear with good air entry bilaterally. HEART: Regular rate and rhythm. No chest wall tenderness ABDOMEN: Soft and non-tender, without guarding or rebound. SKIN: Acyanotic, warm, dry, without rashes EXTREMITIES: Without swelling, tenderness or deformity NEUROLOGICAL: No focal deficits. No aphasia. No facial droop with perhaps some slight slurred speech. Normal strength and tone in the extremities. Sensation to gross touch normal. Ambulatory with minimal assistance from wheelchair to bed EK bpm normal sinus rhythm. No PVC or PAC. No acute ST segment elevation or depression with QTc of 433. CONTINUOUS CARDIAC MONITORING: was ordered and showed a heart rate of 80s bpm in normal sinus rhythm Patient's laboraory studies and imaging reviewed. Differential includes Infection, dehydration, metabolic abnormality, hypo/hyperglycemia, electrolyte disturbance, anemia, hypoxia, cardiac sources,neurologic, as well as other pathologies. IMPRESSION/MEDICAL DECISION MAKING: Patient well-appearing. No large hemiplegia noted. Several days in symptoms and thus not made a stroke alert. Having hallucinations indicate possibly a metabolic or infectious etiology. Afebrile here. Urinalysis ordered. Blood work obtained. No trauma reported. Will send for CT scans of the head although with the hallucinations again question less likely to be a stroke. COVID- negative, EKG unrevealing. Normal white blood cell count no anemia. No significant electrolyte abnormality signs of renal dysfunction. Normal CK and normal troponin. Negative flu and RSV testing as well. Lactate within normal limits. Urinalysis pending collection. CT scans completed. CT scans per radiology without acute findings of intracranial bleed, aneurysm, or vascular occlusion. Given her change in mentation with hallucinations, will have the hospitalist evaluate for further care here. She lives by herself normally and this is of concern is hallucinations. Discussed with daughter at bedside and discussed findings. They have concerns about the patient's safety at home. Urinalysis without clear evidence of infection. Hospitalist contacted and discussed. DIAGNOSIS: Hallucinations DISPOSITION: Hospitalist will evaluate Patient was agreeable with this plan. 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 Maya H/O partial mastectomy (07/2010) Right sentinel node and right partial mastectomy Dr. Maya History of esophagogastroduodenoscopy (EGD) History of partial mastectomy (08/2010) Re-excision of right breast Dr. Maya S/P appendectomy Age 16 S/P biopsy (12/20/18) Open Excisional Biopsy Anterior Chest Wall with Frozen Section Dr. Friend [phone] Social History Smoking Status: Never smoker Second Hand Exposure: No; Hx Alcohol Use: No Hx Substance Use: No Preferred Language: American Communication Ability: Effective Visual Impairment: No Limitations Project Coordinator Rn Required: No Beliefs That Will Affect Care: None marital status: / Current Living Situation: Alone How many Children do You have: 4 Other Information That Helps Us Care for You: No Feels Safe at Home: Yes Safety Concerns: Feels Safe At This Time Assistive Devices: Cane, Denture - Upper, Denture - Lower, Glasses and Walker Allergies Allergies Allergy/AdvReac Type Severity Reaction Status Date / Time No Known Allergies Allergy Verified 07/17/22 16:51 Home Meds Home Medications Medication Instructions Recorded Confirmed atorvastatin 10 mg tablet 10 mg PO QAM 11/16/18 07/17/22 cholecalciferol (vitamin D3) 50 2,000 units PO QAM 11/16/18 07/17/22 mcg (2,000 unit) capsule levothyroxine 50 mcg capsule 50 mcg PO QAM 11/16/18 07/17/22 letrozole 2.5 mg tablet 2.5 mg PO QAM 10/11/19 07/17/22 lisinopril 40 mg tablet 40 mg PO QAM 10/11/19 07/17/22 pantoprazole 40 mg tablet,delayed 40 mg PO DAILY 07/17/22 07/17/22 release Results & Data (ED) Vital Signs Vital Signs - 24 hr 07/17/22 16:05 07/17/22 17:00 07/17/22 17:35 Temperature 36.5 C Temperature Source Temporal Artery Scan Pulse Rate 93 H 80 Pulse Rate [Apical] 76 Pulse Rate from SpO2 Sensor Pulse Rhythm [Apical] Regular Pulse Strength [Apical] Normal Respiratory Rate 16 18 Respiratory Effort / Characteristics Non-Labored Spontaneous Non-Labored Spontaneous Respiratory Depth Normal Normal Respiratory Pattern Regular Regular Blood Pressure 170/83 H Blood Pressure [Left Arm] 160/134 H Blood Pressure Mean 112 Blood Pressure Mean [Left Arm] 142 Pulse Oximetry 93 94 Oxygen Delivery Method Room Air Room Air Sepsis Recent Fever Within 48 Hours No Sepsis New/Unexplained Change in Mental Status Yes Sepsis Action Taken by Nursing No Action Required 07/17/22 17:30 07/17/22 18:00 07/17/22 18:42 Temperature Temperature Source Pulse Rate 73 92 H 84 Pulse Rate [Apical] Pulse Rate from SpO2 Sensor 74 89 Pulse Rhythm [Apical] Pulse Strength [Apical] Respiratory Rate 19 15 19 Respiratory Effort / Characteristics Respiratory Depth Respiratory Pattern Blood Pressure 185/111 H 206/137 H Blood Pressure [Left Arm] Blood Pressure Mean 135 160 Blood Pressure Mean [Left Arm] Pulse Oximetry 92 95 96 Oxygen Delivery Method Room Air Sepsis Recent Fever Within 48 Hours Sepsis New/Unexplained Change in Mental Status Sepsis Action Taken by Nursing 07/17/22 19:00 Temperature Temperature Source Pulse Rate 80 Pulse Rate [Apical] Pulse Rate from SpO2 Sensor Pulse Rhythm [Apical] Pulse Strength [Apical] Respiratory Rate 15 Respiratory Effort / Characteristics Respiratory Depth Respiratory Pattern Blood Pressure 175/114 H Blood Pressure [Left Arm] Blood Pressure Mean 134 Blood Pressure Mean [Left Arm] Pulse Oximetry 94 Oxygen Delivery Method Room Air Sepsis Recent Fever Within 48 Hours Sepsis New/Unexplained Change in Mental Status Sepsis Action Taken by Nursing Laboratory Data 07/17/22 16:24 07/17/22 16:24 Lab Results 07/17/22 07/17/22 07/17/22 Range/Units 16:24 16:24 16:24 WBC 6.62 (4.8-10.8) K/ul RBC 4.85 (4.20-5.40) M/uL Hgb 13.8 (12.0-16.0) g/dl POC Hgb (12.0-16.0) g/dl Hct 42.0 (37.0-47.0) % POC Hct (37-47) % MCV 86.6 (80.0-100.0) fL MCH 28.5 (25.0-34.0) pg MCHC 32.9 (32.0-36.0) g/dL RDW Std Deviation 41.1 (36.4-46.3) fL RDW Coeff of [place] 13.1 (11.5-14.5) % Plt Count 211 (130-400) K/uL MPV 11.2 (9.4-12.4) fL Immature Gran % (Auto) 0.3 % Neut % (Auto) 75.1 % Lymph % (Auto) 13.7 % Cassia % (Auto) 9.2 % Eos % (Auto) 1.4 % Baso % (Auto) 0.3 % Neut # (Auto) 4.97 (1.40-6.50) K/uL Lymph # (Auto) 0.91 L (1.2-3.4) K/uL Cassia # (Auto) 0.61 H (0.11-0.59) K/uL Eos # (Auto) 0.09 (0-0.50) K/uL Baso # (Auto) 0.02 (0-0.2) K/uL Immature Gran # (Auto) 0.02 (0.01-0.20) K/uL PT 11.2 (9.0-12.0) Seconds INR 1.1 (0.9-1.1) APTT 25.2 (21.0-31.0) Seconds PTT Ratio 0.9 POC Sodium (135-144) mmol/L Sodium 142 (136-145) mmol/L POC Potassium (3.3-5.0) mmol/L Potassium 3.6 (3.5-5.1) mmol/L POC Chloride (101-112) mmol/L Chloride 107 (98-107) mmol/L Carbon Dioxide 29 (21-32) mmol/L POC Total CO2 (24-31) mmol/L Anion Gap 6 (3-11) POC Anion Gap (16-25) mmol/L POC BUN (7-18) mg/dl BUN 15 (6-23) mg/dl Creatinine 0.97 (0.6-1.2) mg/dl POC Creatinine (0.6-1.3) mg/dl Est Cr Clr Drug Dosing 46.9 ml/min Est GFR ( Amer) 64.8 ml/min Est GFR (Non-Af Amer) 55.9 ml/min BUN/Creatinine Ratio 15.5 (10-20) Glucose 100 H (70-99(Fasting)) mg/dl POC Glucose (other) (70-99) mg/dl Lactate (0.4-2.0) mmol/L Calcium 10.0 (8.6-10.3) mg/dl POC Ioniz Calcium Coleman (1.12-1.32) mmol/l Magnesium 1.8 (1.7-2.4) mg/dl Total Bilirubin 1.4 H (0.2-1.0) mg/dl AST 19 (13-39) U/L ALT 15 (7-52) U/L Alkaline Phosphatase 57 (34-104) U/L Ammonia (18-72) umol/L Total Creatine Kinase 97 (26-192) U/L Troponin I High Sens 5.7 (0-14) pg/ml Total Protein 6.9 (6.0-8.3) gm/dl Albumin 4.1 (3.4-5.0) gm/dl Globulin 2.8 (2.5-4.0) gm/dl Albumin/Globulin Ratio 1.5 (0.9-2) Urine Color Urine Appearance (Clear) Urine pH (4.5-7.5) Ur Specific [place] (1.000-1.030) Urine Protein (Negative) Urine Glucose (UA) (Negative) Urine Ketones (Negative) Urine Blood (Negative) Urine Nitrite (Negative) Urine Bilirubin (Negative) Urine Urobilinogen (Negative) Ur Leukocyte Esterase (Negative) Urine WBC (Auto) (0-5) /hpf Urine RBC (Auto) (0-4) /hpf U Hyaline Cast (Auto) (0-5) /lpf U Epithel Cells (Auto) (0-5) /lpf Urine Bacteria (Auto) (Negative) SARS-CoV-2 (PCR) (Negative) Influenza Type A (PCR) (Neg) Influenza Type B (PCR) (Neg) RSV (RT-PCR) (Neg) 07/17/22 07/17/22 07/17/22 Range/Units 16:24 16:24 16:47 WBC (4.8-10.8) K/ul RBC (4.20-5.40) M/uL Hgb (12.0-16.0) g/dl POC Hgb 14.6 (12.0-16.0) g/dl Hct (37.0-47.0) % POC Hct 43 (37-47) % MCV (80.0-100.0) fL MCH (25.0-34.0) pg MCHC (32.0-36.0) g/dL RDW Std Deviation (36.4-46.3) fL RDW Coeff of [place] (11.5-14.5) % Plt Count (130-400) K/uL MPV (9.4-12.4) fL Immature Gran % (Auto) % Neut % (Auto) % Lymph % (Auto) % Cassia % (Auto) % Eos % (Auto) % Baso % (Auto) % Neut # (Auto) (1.40-6.50) K/uL Lymph # (Auto) (1.2-3.4) K/uL Cassia # (Auto) (0.11-0.59) K/uL Eos # (Auto) (0-0.50) K/uL Baso # (Auto) (0-0.2) K/uL Immature Gran # (Auto) (0.01-0.20) K/uL PT (9.0-12.0) Seconds INR (0.9-1.1) APTT (21.0-31.0) Seconds PTT Ratio POC Sodium 143 (135-144) mmol/L Sodium (136-145) mmol/L POC Potassium 3.4 (3.3-5.0) mmol/L Potassium (3.5-5.1) mmol/L POC Chloride 103 (101-112) mmol/L Chloride (98-107) mmol/L Carbon Dioxide (21-32) mmol/L POC Total CO2 26 (24-31) mmol/L Anion Gap (3-11) POC Anion Gap 18.0 (16-25) mmol/L POC BUN 13 (7-18) mg/dl BUN (6-23) mg/dl Creatinine (0.6-1.2) mg/dl POC Creatinine 1.0 (0.6-1.3) mg/dl Est Cr Clr Drug Dosing ml/min Est GFR ( Amer) ml/min Est GFR (Non-Af Amer) ml/min BUN/Creatinine Ratio (10-20) Glucose (70-99(Fasting)) mg/dl POC Glucose (other) 99 (70-99) mg/dl Lactate 0.9 (0.4-2.0) mmol/L Calcium (8.6-10.3) mg/dl POC Ioniz Calcium Coleman 1.26 (1.12-1.32) mmol/l Magnesium (1.7-2.4) mg/dl Total Bilirubin (0.2-1.0) mg/dl AST (13-39) U/L ALT (7-52) U/L Alkaline Phosphatase (34-104) U/L Ammonia (18-72) umol/L Total Creatine Kinase (26-192) U/L Troponin I High Sens (0-14) pg/ml Total Protein (6.0-8.3) gm/dl Albumin (3.4-5.0) gm/dl Globulin (2.5-4.0) gm/dl Albumin/Globulin Ratio (0.9-2) Urine Color Urine Appearance (Clear) Urine pH (4.5-7.5) Ur Specific [place] (1.000-1.030) Urine Protein (Negative) Urine Glucose (UA) (Negative) Urine Ketones (Negative) Urine Blood (Negative) Urine Nitrite (Negative) Urine Bilirubin (Negative) Urine Urobilinogen (Negative) Ur Leukocyte Esterase (Negative) Urine WBC (Auto) (0-5) /hpf Urine RBC (Auto) (0-4) /hpf U Hyaline Cast (Auto) (0-5) /lpf U Epithel Cells (Auto) (0-5) /lpf Urine Bacteria (Auto) (Negative) SARS-CoV-2 (PCR) NEGATIVE (Negative) Influenza Type A (PCR) Negative (Neg) Influenza Type B (PCR) Negative (Neg) RSV (RT-PCR) Negative (Neg) 07/17/22 07/17/22 Range/Units 17:03 18:39 WBC (4.8-10.8) K/ul RBC (4.20-5.40) M/uL Hgb (12.0-16.0) g/dl POC Hgb (12.0-16.0) g/dl Hct (37.0-47.0) % POC Hct (37-47) % MCV (80.0-100.0) fL MCH (25.0-34.0) pg MCHC (32.0-36.0) g/dL RDW Std Deviation (36.4-46.3) fL RDW Coeff of [place] (11.5-14.5) % Plt Count (130-400) K/uL MPV (9.4-12.4) fL Immature Gran % (Auto) % Neut % (Auto) % Lymph % (Auto) % Cassia % (Auto) % Eos % (Auto) % Baso % (Auto) % Neut # (Auto) (1.40-6.50) K/uL Lymph # (Auto) (1.2-3.4) K/uL Cassia # (Auto) (0.11-0.59) K/uL Eos # (Auto) (0-0.50) K/uL Baso # (Auto) (0-0.2) K/uL Immature Gran # (Auto) (0.01-0.20) K/uL PT (9.0-12.0) Seconds INR (0.9-1.1) APTT (21.0-31.0) Seconds PTT Ratio POC Sodium (135-144) mmol/L Sodium (136-145) mmol/L POC Potassium (3.3-5.0) mmol/L Potassium (3.5-5.1) mmol/L POC Chloride (101-112) mmol/L Chloride (98-107) mmol/L Carbon Dioxide (21-32) mmol/L POC Total CO2 (24-31) mmol/L Anion Gap (3-11) POC Anion Gap (16-25) mmol/L POC BUN (7-18) mg/dl BUN (6-23) mg/dl Creatinine (0.6-1.2) mg/dl POC Creatinine (0.6-1.3) mg/dl Est Cr Clr Drug Dosing ml/min Est GFR ( Amer) ml/min Est GFR (Non-Af Amer) ml/min BUN/Creatinine Ratio (10-20) Glucose (70-99(Fasting)) mg/dl POC Glucose (other) (70-99) mg/dl Lactate (0.4-2.0) mmol/L Calcium (8.6-10.3) mg/dl POC Ioniz Calcium Coleman (1.12-1.32) mmol/l Magnesium (1.7-2.4) mg/dl Total Bilirubin (0.2-1.0) mg/dl AST (13-39) U/L ALT (7-52) U/L Alkaline Phosphatase (34-104) U/L Ammonia 23.0 (18-72) umol/L Total Creatine Kinase (26-192) U/L Troponin I High Sens (0-14) pg/ml Total Protein (6.0-8.3) gm/dl Albumin (3.4-5.0) gm/dl Globulin (2.5-4.0) gm/dl Albumin/Globulin Ratio (0.9-2) Urine Color Yellow Urine Appearance Clear (Clear) Urine pH 7.0 (4.5-7.5) Ur Specific [place] > 1.045 H (1.000-1.030) Urine Protein Trace H (Negative) Urine Glucose (UA) Negative (Negative) Urine Ketones Trace H (Negative) Urine Blood Trace H (Negative) Urine Nitrite Negative (Negative) Urine Bilirubin Negative (Negative) Urine Urobilinogen Negative (Negative) Ur Leukocyte Esterase Trace H (Negative) Urine WBC (Auto) 1-5 (0-5) /hpf Urine RBC (Auto) 0-4 (0-4) /hpf U Hyaline Cast (Auto) 1-5 (0-5) /lpf U Epithel Cells (Auto) 20-30 H (0-5) /lpf Urine Bacteria (Auto) Negative (Negative) SARS-CoV-2 (PCR) (Negative) Influenza Type A (PCR) (Neg) Influenza Type B (PCR) (Neg) RSV (RT-PCR) (Neg) Administered Medications Heparin Sodium (Porcine) (Heparin Sod 5,000 Unit/0.5 Ml Vial) 5,000 units SQ Q12 ALEX Stop: 08/16/22 21:59 Last Admin: 07/17/22 22:37 Dose: 5,000 units Documented By: JACQUELINE Sodium Chloride (Nss 1000ml) 1,000 mls @ 75 mls/hr IV .[id number] COUNTS INCLUDE 234 BEDS AT THE [facility] Stop: 07/18/22 10:49 Last Admin: 07/17/22 22:37 Dose: 75 mls/hr Documented By: JACQUELINE Discontinued Medications Ioversol (Optiray 320 500ml) 114 ml IV ONCE ONE Stop: 07/17/22 17:46 Last Admin: 07/17/22 17:46 Dose: 114 ml Documented By: SEAN Imaging Data Radiologist's Impression: Head CT 07/17/22 16:08 CT angio neck with con, CT head/brain wo con, CT angio head w con CLINICAL HISTORY: confusion, right side issues x2 days TECHNIQUE: Contiguous axial CT images of the head were acquired from the base of the skull to the vertex without intravenous contrast administration. CT angiography of the head and neck was performed following intravenous administration of iodinated contrast. Coronal and sagittal MIPS were obtained from the axial data set and were submitted for review. Automated dose lowering techniques and/or adjustment according to patient size were utilized for this examination. All measurements were calculated based on NASCET criteria. CT DOSE: 1186.40 mGy.cm Comparison: None available at the time of this dictation. FINDINGS: CT head: There is no acute intracranial hemorrhage or evidence of acute territorial infarction. No shift of the midline structures, mass effect, or extra-axial abnormalities are shown. There is a left thyroid nodule measuring 26 mm in diameter. CTA Neck: A 3 vessel aortic arch is shown. There is no significant atherosclerotic plaque in the aortic arch or the origins of the innominate, left common carotid, and left subclavian arteries. The common carotid, external carotid, cervical segments of the internal carotid arteries, and the cervical segments of the vertebral arteries are patent without hemodynamically significant stenosis. The left vertebral artery is dominant. CTA Head: The anterior and posterior cerebral circulations are patent. origin of the bilateral posterior cerebral arteries noted. IMPRESSION: 1. No acute intracranial hemorrhage, evidence of acute territorial infarction, or other acute intracranial disease process. 2. No occlusion, hemodynamically significant stenosis, or dissection in the major cervical arteries. 3. No occlusion, hemodynamically significant stenosis, aneurysm, dissection, or arteriovenous malformation in the major intracranial arteries. Assessment of stenosis of the internal carotid arteries is based on NASCET criteria. ACT 112: Negative or not required by law. Electronically signed by: Dm Figueredo M.D. 07/17/2022 6:27 PM Head CTA 07/17/22 16:08 CT angio neck with con, CT head/brain wo con, CT angio head w con CLINICAL HISTORY: confusion, right side issues x2 days TECHNIQUE: Contiguous axial CT images of the head were acquired from the base of the skull to the vertex without intravenous contrast administration. CT angiography of the head and neck was performed following intravenous administration of iodinated contrast. Coronal and sagittal MIPS were obtained from the axial data set and were submitted for review. Automated dose lowering techniques and/or adjustment according to patient size were utilized for this examination. All measurements were calculated based on NASCET criteria. CT DOSE: 1186.40 mGy.cm Comparison: None available at the time of this dictation. FINDINGS: CT head: There is no acute intracranial hemorrhage or evidence of acute leyla torial infarction. No shift of the midline structures, mass effect, or extra- axial abnormalities are shown. There is a left thyroid nodule measuring 26 mm in diameter. CTA Neck: A 3 vessel aortic arch is shown. There is no significant atherosclero tic plaque in the aortic arch or the origins of the innominate, left common carotid, and left subclavian arteries. The common carotid, external carotid, cervical segments of the internal carotid arteries, and the cervical segments of the vertebral arteries are patent without hemodynamically significant stenosis. The left vertebral artery is dominant. CTA Head: The anterior and posterior cerebral circulations are patent. origin of the bilateral posterior cerebral arteries noted. IMPRESSION: 1. No acute intracranial hemorrhage, evidence of acute territorial infarction, or other acute intracranial disease process. 2. No occlusion, hemodynamically significant stenosis, or dissection in the major cervical arteries. 3. No occlusion, hemodynamically significant stenosis, aneurysm, dissection, or arteriovenous malformation in the major intracranial arteries. Assessment of stenosis of the internal carotid arteries is based on NASCET criteria. ACT 112: Negative or not required by law. Electronically signed by: Dm Figueredo M.D. 07/17/2022 6:27 PM Neck CTA 07/17/22 16:08 CT angio neck with con, CT head/brain wo con, CT angio head w con CLINICAL HISTORY: confusion, right side issues x2 days TECHNIQUE: Contiguous axial CT images of the head were acquired from the base of the skull to the vertex without intravenous contrast administration. CT angiography of the head and neck was performed following intravenous administration of iodinated contrast. Coronal and sagittal MIPS were obtained from the axial data set and were submitted for review. Automated dose lowering techniques and/or adjustment according to patient size were utilized for this examination. All measurements were calculated based on NASCET criteria. CT DOSE: 1186.40 mGy.cm Comparison: None available at the time of this dictation. FINDINGS: CT head: There is no acute intracranial hemorrhage or evidence of acute territorial infarction. No shift of the midline structures, mass effect, or extra-axial abnormalities are shown. There is a left thyroid nodule measuring 26 mm in diameter. CTA Neck: A 3 vessel aortic arch is shown. There is no significant atherosclerotic plaque in the aortic arch or the origins of the innominate, left common carotid, and left subclavian arteries. The common carotid, external carotid, cervical segments of the internal carotid arteries, and the cervical segments of the vertebral arteries are patent without hemodynamically significant stenosis. The left vertebral artery is dominant. CTA Head: The anterior and posterior cerebral circulations are patent. origin of the bilateral posterior cerebral arteries noted. IMPRESSION: 1. No acute intracranial hemorrhage, evidence of acute territorial infarction, or other acute intracranial disease process. 2. No occlusion, hemodynamically significant stenosis, or dissection in the major cervical arteries. 3. No occlusion, hemodynamically significant stenosis, aneurysm, dissection, or arteriovenous malformation in the major intracranial arteries. Assessment of stenosis of the internal carotid arteries is based on NASCET criteria. ACT 112: Negative or not required by law. Electronically signed by: Dm Figueredo M.D. 07/17/2022 6:27 PM Discharge Plan Visit Data Chief Complaint: Confusion Stated Complaint: VISUAL DISTURBANCES, RIGHT SIDE PAIN, CONFUSED, ED Provider: Scooby Barlow Discharge Problem: Hallucinations Patient Disposition: Admitted As Inpatient Discharge Instructions Interventions: ED Discharge Assessment Last Done: 07/17/22 21:06
[2022-07-17 16:54] LABS: Basophils # (auto) 0.02 K/uL (0-0.2); Basophils % (auto) 0.3 %; Eosinophils # (auto) 0.09 K/uL (0-0.50); Eosinophils % (auto) 1.4 %; Hemoglobin 13.8 g/dl (12.0-16.0); Immature Granulocytes # (auto) 0.02 K/uL (0.01-0.20); Immature Granulocytes % (auto) 0.3 %; Lymphocytes # (auto) 0.91 K/uL (1.2-3.4); Lymphocytes % (auto) 13.7 %; Mean Corpuscular Hemoglobin 28.5 pg (25.0-34.0); Mean Corpuscular Hgb Conc 32.9 g/dL (32.0-36.0); Mean Corpuscular Volume 86.6 fL (80.0-100.0); Mean Platelet Volume 11.2 fL (9.4-12.4); Monocytes # (auto) 0.61 K/uL (0.11-0.59); Monocytes % (auto) 9.2 %; Neutrophils # (auto) 4.97 K/uL (1.40-6.50); Neutrophils % (auto) 75.1 %; Platelet Count 211 K/uL (130-400); RDW Coefficient of Variation 13.1 % (11.5-14.5); RDW Standard Deviation 41.1 fL (36.4-46.3); Red Blood Count 4.85 M/uL (4.20-5.40); White Blood Count 6.62 K/ul (4.8-10.8)
[2022-07-17 16:59] LABS: iSTAT Hemoglobin 14.6 g/dl (12.0-16.0); iSTAT Ionized Calcium 1.26 mmol/l (1.12-1.32); iSTAT Potassium 3.4 mmol/L (3.3-5.0)
[2022-07-17 17:07] LABS: Albumin Globulin Ratio 1.5 (0.9-2); Albumin Level 4.1 gm/dl (3.4-5.0); BUN Creatinine Ratio 15.5 (10-20); Bilirubin,Total 1.4 mg/dl (0.2-1.0); Creatinine Clr Calc Pharmacy 46.9 ml/min; Est GFR (African American) 64.8 ml/min; Est GFR (Non-African American) 55.9 ml/min; Globulin 2.8 gm/dl (2.5-4.0); Magnesium 1.8 mg/dl (1.7-2.4); Potassium 3.6 mmol/L (3.5-5.1); Total Protein 6.9 gm/dl (6.0-8.3)
[2022-07-17 17:13] LABS: Troponin I High Sensitivity 5.7 pg/ml (0-14)
[2022-07-17 17:17] LABS: INR 1.1 (0.9-1.1); Partial Thromboplastin Ratio 0.9; Partial Thromboplastin Time 25.2 Seconds (21.0-31.0); Prothrombin Time 11.2 Seconds (9.0-12.0)
[2022-07-17 17:21] LABS: Influenza A virus by PCR Negative (Neg); Influenza B virus by PCR Negative (Neg); RSV by PCR Negative (Neg); SARS CoV2 RNA(COVID-19) Ceph NEGATIVE (Negative)
[2022-07-17] MEDS ORDERED: OPTIRAY 320 500ml IV ONE (17:45)
--- NOTE | 2022-07-17 18:29 | CT Scan Report ---
CT angio neck with con, CT head/brain wo con, CT angio head w con CLINICAL HISTORY: confusion, right side issues x2 days TECHNIQUE: Contiguous axial CT images of the head were acquired from the base of the skull to the lizette mukesh without intravenous contrast administration. CT angiography of the head and neck was performed f ollowing intravenous administration of iodinated contrast. Coronal and sagittal MIPS were obtained fr om the axial data set and were submitted for review. Automated dose lowering techniques and/or adjus tment according to patient size were utilized for this examination. All measurements were calculated based on NASCET criteria. CT DOSE: 1186.40 mGy.cm Comparison: None available at the time of this dictation. FINDINGS: CT head: There is no acute intracranial hemorrhage or evidence of acute territorial infarction. No sh ift of the midline structures, mass effect, or extra-axial abnormalities are shown. There is a left thyroid nodule measuring 26 mm in diameter. CTA Neck: A 3 vessel aortic arch is shown. There is no significant atherosclerotic plaque in the aor tic arch or the origins of the innominate, left common carotid, and left subclavian arteries. The co mmon carotid, external carotid, cervical segments of the internal carotid arteries, and the cervical segments of the vertebral arteries are patent without hemodynamically significant stenosis. The left vertebral artery is dominant. CTA Head: The anterior and posterior cerebral circulations are patent. origin of the bilateral posterior cerebral arteries noted. IMPRESSION: 1. No acute intracranial hemorrhage, evidence of acute territorial infarction, or other acute intrac ranial disease process. 2. No occlusion, hemodynamically significant stenosis, or dissection in the major cervical arteries. 3. No occlusion, hemodynamically significant stenosis, aneurysm, dissection, or arteriovenous malfor mation in the major intracranial arteries. Assessment of stenosis of the internal carotid arteries is based on NASCET criteria. ACT 112: Negative or not required by law. Electronically signed by: Dm Figueredo M.D. 07/17/2022 6:27 PM
[2022-07-17 19:16] LABS: Appearance Urine Clear (Clear); Bacteria Urine Automated Negative (Negative); Bilirubin Urine Negative (Negative); Blood Urine Trace (Negative); Color Urine Yellow; Epithelial Cell Urine Auto 20-30 /lpf (0-5); Glucose Urine UA Negative (Negative); Ketones Urine Trace (Negative); Leukocyte Esterase Urine Trace (Negative); Nitrite Urine Negative (Negative); Protein Urine Trace (Negative); RBC Urine Automated 0-4 /hpf (0-4); Specific Gravity Urine > 1.045 (1.000-1.030); Urobilinogen Urine Negative (Negative)
[2022-07-17] MEDS ORDERED: hydrALAZINE HCL 20 MG/ML VIAL IV PRN (21:30)
[2022-07-17] MEDS ORDERED: ACETAMINOPHEN 325 MG TAB PO PRN (21:30)
[2022-07-17] MEDS ORDERED: POLYETHYLENE (MIRALAX) 17 GM PACK PO PRN (21:30)
[2022-07-17] MEDS ORDERED: SODIUM CHLORIDE 0.9% 1000ML 1,000 ML IV SCH (21:30)
[2022-07-17] MEDS ORDERED: NITROGLYCERIN SL 0.4 MG/TAB TAB SL PRN (21:30)
[2022-07-17] MEDS ORDERED: HEPARIN SOD 5,000 UNIT/0.5 ML VIAL SQ SCH (22:00)
--- NOTE | 2022-07-17 23:02 | History and Physical Report ---
DATE OF ADMISSION: 07/17/2022. CHIEF COMPLAINT: Confusion and hallucinations. HISTORY OF PRESENT ILLNESS: This is a 77-year-old female with past medical history significant for hyperparathyroidism secondary to renal disease, hypothyroidism, hyperlipidemia, history of metastatic breast cancer, GERD, chronic kidney disease stage III, osteoporosis, iron deficiency anemia, who presents with hallucinations and confusion. The patient lives at home with her daughter. She ambulates without any support. Eats and drinks okay. No difficulty swallowing. Since the last 4 days, the patient is getting confused and she says she is seeing things, visual hallucinations. The patient was not getting better, that is the reason she was brought in here. Another daughter is in the room right now. As per the daughter and patient there was no weakness, no slurred speech . Currently eating dinner, eating a sandwich, swallowing okay. Insight seems to be okay, could tell her name, could tell her date of , knows that she is in the hospital, could tell the month, but in the year she told 2032. The patient denies any headache. No chest pain, no abdominal pain, no nausea, no vomiting, occasional cough. No fevers. Normal bowel and bladder movements. Blood pressure is somewhat running high. ALLERGIES: No known drug allergies. PAST MEDICAL HISTORY: As mentioned above. PAST SURGICAL HISTORY: Colonoscopy, ligation of oviducts, right partial mastectomy in July 2010, re-excision of the right breast in August 2010, bilateral complete mastectomy in December 2012, appendectomy at age 15,Treated localized retinal lesion.. MEDICATIONS: The patient is on atorvastatin 10 mg p.o. daily, vitamin D 2000 units p.o. daily, Letrozole 2.5 mg p.o. a.m., levothyroxine 50 mcg p.o. a.m., lisinopril 40 mg p.o. a.m., Protonix 40 mg p.o. daily. FAMILY HISTORY: Significant for mother has lung cancer, heart disorder, thyroid disorder; father has diabetes, CABG. SOCIAL HISTORY: . No smoking, no alcohol, no drug use. REVIEW OF SYSTEMS: As per HPI. Rest of the review of systems is negative. PHYSICAL EXAMINATION: GENERAL: The patient is of moderate build, not in acute distress. VITAL SIGNS: Temperature 36.5, pulse 80, respiratory rate 15, blood pressure 175/114, oxygen 94% on room air. HEENT: Pupils equal, round, and reactive to light. Oral mucosa moist. NECK: No JVD or neck masses. CARDIOVASCULAR: S1 and S2 heard. Regular rate and rhythm. No murmur, no gallop. RESPIRATORY SYSTEM: Normal AP diameter. No accessory muscle use. No wheezing or crackles. ABDOMEN: Soft, bowel sounds present, nontender, no distention. CENTRAL NERVOUS SYSTEM: Alert and oriented. Speech is clear. No facial droop. Obeys simple commands. Insight is okay. Can lift her upper extremities and also lift the lower extremities and hold. No pronator drift. Coordination of movements normal. Sensation is intact. EXTREMITIES: No edema, no erythema. LABORATORY DATA: WBC 6.6, hemoglobin 13.8, hematocrit 42, platelets 211. PT 11.2, INR 1.1, APTT 25.2. Sodium 142, potassium 3.6, chloride 107, bicarbonate 29, BUN 15, creatinine 0.9, serum glucose 100. Lactate 0.9, calcium 10, magnesium 1.8, total bilirubin 1.4, AST 19, ALT 15, alkaline phosphatase 57. Ammonia 23. Total creatinine kinase 97. Troponin I high sensitivity 5.7. Urinalysis, trace ketones, trace blood, no bacteria. SARS-CoV-2 PCR negative. Influenza A and B PCR negative. RSV PCR negative. IMAGING DATA: CTA of the head and neck, no acute findings. CT of the head without contrast, no acute findings. EKG: Normal sinus rhythm, rate of 85, no significant change was found. ASSESSMENT AND PLAN: This is a 77-year-old female who presents with confusion and hallucinations. 1. Confusion and hallucinations: No weakness noted. Speech is clear. No facial droop. Initial stroke workup is unremarkable. Will complete stroke workup with MRI scan. There is no obvious infection source. Blood pressures are somewhat running high. Will follow the MRI results. Will consult Neurology in the a.m. for further recommendation. Monitor in the [employer] tele. Gentle fluids for now. Will monitor for any delirium. 2. Hypertension: Blood pressures are somewhat running high. Continue her lisinopril. Will place on IV hydralazine p.r.n. for now. 3. History of breast cancer: Status post total bilateral mastectomies, and her PET scan in April of [address] with stable findings and CT abdomen and pelvis done in April 2022, no suspicious findings were found. Follows with heme/onc. 4. History of hypothyroidism: Continue Synthroid. 5. Gastroesophageal reflux disease: Continue Protonix. 6. Hyperlipidemia: Continue statin. 7. History of chronic kidney disease stage III: Presents with creatinine of 0.9. Will follow the labs. 8. Deep venous thrombosis prophylaxis: Sequential compression devices. Heparin subcutaneously. Addendum: MRI showed 4mm frontal region acute bleed. Spoke with [facility] . Neurosurgery thinks 4mm lesion to cause her current symptoms , advised to await neuro evaluation and recommendation and to repeat ct head in 24hrs from first ct scan. DISPOSITION: Closely monitor in the med tele. PT/OT prior to discharge. Social service to help with discharge planning. Daughter wants her to be full code for now. Job ID: [id number] MTDD
[2022-07-18] MEDS ORDERED: GADOBUTROL 65ML VIAL IV ONE (02:07)
--- NOTE | 2022-07-18 03:44 | Magnetic Resonance Report ---
Exam(s): MRI HEAD W/WO Contrast EXAM: MR Head Without and With Intravenous Contrast CLINICAL HISTORY: Reason for exam: confusion, hallucinations. TECHNIQUE: Magnetic resonance images of the head/brain without and with intravenous contrast in multiple planes. CONTRAST: Contrast must be dictated COMPARISON: Head CT 07/17/2022. FINDINGS: Brain: There is a 4.1 x 4.0 mm T2 dark and T1 bright nodule in the subcortical white matter of the posterior right frontal lobe with mild vasogenic edema which does not demonstrate significant enhancement. Remote ischemic injury of the left frontal lobe with encephalomalacia and gliosis. Moderate nonspecific white matter changes. No evidence of abnormal enhancement. No mass. No hemorrhage. No acute infarct. The flow voids at the base of the brain are intact. Ventricles: Unremarkable. No ventriculomegaly. Bones/joints: Unremarkable. Sinuses: Chronic ethmoid sinusitis. No acute sinusitis. Mastoid air cells: Unremarkable as visualized. No mastoid effusion. Orbits: Unremarkable as visualized. IMPRESSION: There is a 4.1 x 4.0 mm T2 dark and T1 bright nodule in the subcortical white matter of the posterior right frontal lobe with mild vasogenic edema concerning for acute intraparenchymal hemorrhage, much less likely metastatic disease. Remote ischemic injury of the left frontal lobe with encephalomalacia and gliosis. Moderate nonspecific white matter changes. Communications: Call Doctor Above results Electronically signed by: Maura Frausto MD 07/18/22 03:43 AM
[2022-07-18] MEDS: LEVOTHYROXINE SODIUM 50 MCG TABLET PO SCH (06:18)
[2022-07-18 06:23] LABS: Basophils # (auto) 0.04 K/uL (0-0.2); Basophils % (auto) 0.7 %; Eosinophils # (auto) 0.16 K/uL (0-0.50); Eosinophils % (auto) 2.8 %; Hematocrit (blood only) 36.7 % (37.0-47.0); Hemoglobin 12.1 g/dl (12.0-16.0); Immature Granulocytes # (auto) 0.01 K/uL (0.01-0.20); Immature Granulocytes % (auto) 0.2 %; Lymphocytes # (auto) 1.11 K/uL (1.2-3.4); Lymphocytes % (auto) 19.7 %; Mean Corpuscular Hemoglobin 28.2 pg (25.0-34.0); Mean Corpuscular Volume 85.5 fL (80.0-100.0); Mean Platelet Volume 11.5 fL (9.4-12.4); Monocytes % (auto) 12.4 %; Neutrophils # (auto) 3.62 K/uL (1.40-6.50); Neutrophils % (auto) 64.2 %; Platelet Count 179 K/uL (130-400); RDW Coefficient of Variation 13.2 % (11.5-14.5); RDW Standard Deviation 40.5 fL (36.4-46.3); Red Blood Count 4.29 M/uL (4.20-5.40); White Blood Count 5.64 K/ul (4.8-10.8)
[2022-07-18 06:28] LABS: BUN Creatinine Ratio 17.1 (10-20); Calcium 8.6 mg/dl (8.6-10.3); Creatinine Clr Calc Pharmacy 55.3 ml/min; Est GFR (African American) 79.4 ml/min; Est GFR (Non-African American) 68.5 ml/min; Magnesium 1.8 mg/dl (1.7-2.4); Potassium 3.3 mmol/L (3.5-5.1)
[2022-07-18] MEDS: lisinopril 40 MG TAB PO SCH (08:02)
[2022-07-18] MEDS: PANTOprazole 40 MG TAB PO SCH (08:02)
[2022-07-18] MEDS: CHOLECALCIFEROL 1,000 UNITS 25 MCG TAB PO SCH (08:02)
[2022-07-18] MEDS: LETROZOLE 2.5 MG TAB PO SCH (08:02)
[2022-07-18] MEDS: ATORVASTATIN 10 MG TAB PO SCH (08:02)
--- NOTE | 2022-07-18 08:21 | Electrocardiogram Report ---
Test Reason : Blood Pressure : / mmHG Vent. Rate : 085 BPM Atrial Rate : 085 BPM P-R Int : 116 ms QRS Dur : 076 ms QT Int : 364 ms P-R-T Axes : 039 -17 047 degrees QTc Int : 433 ms Poor data quality, interpretation may be adversely affected Normal sinus rhythm Normal ECG When compared with ECG of 11-OCT-2019 19:52, No significant change was found Confirmed by Neville Otoole ([id number]) on 07/18/2022 8:20:47 AM Referred By: REFERRED SELF Confirmed By:Neville Otoole
--- NOTE | 2022-07-18 08:47 | Communication Note ---
Date of Service: July 18, 2022 Notified MRI findings to daughter Catalina and also called her again to notify recommendations by Neurosurgery [facility]. Her cell no: [phone]. Thanks
[2022-07-18] MEDS ORDERED: POTASSIUM CHLORIDE CRTAB 20 MEQ TABCR PO STA (12:56)
--- NOTE | 2022-07-18 13:53 | Neurology Consultation ---
Date of Consultation July 18, 2022 Assessment & Plan (1) Hallucinations: Impression: The patient has been having evening time visual hallucinations and she seems to be more confused at the same time. She thinks that they look so real to her. She has never had any similar hallucinations during daytime. At the same time, she has been having gradually worsening cognitive decline according to other family members. She might have dementing disorder with sundowning symptoms. Recommendations: We will try patient on Seroquel 12.5 mg 1 to 2 hours before bedtime. Dosage might be increased to 25 mg in a week. Cognitive exercises and frequent orientation especially in evening hours are recommended. Sleep hygiene. The patient should stay awake during daytime to improve nighttime sleep. Follow-up at neurology clinic, for cognitive decline and hallucinations. (2) Encephalomalacia: Impression: Recent brain MRI showed probably chronic, small frontal encephalomalacia, from likely trauma. This study also showed right posterior frontal small, round shape T2 dark, T1 hyperdense lesion. Location and presentation raise concern for artifact. Recommendations/plan: Head CT in next 24 to 48 hours. (3) Cognitive decline: Impression: According to other family members, the patient has been having gradually worsening cognitive decline. She repeats herself. She gets sundowning symptoms. Recommendations: Follow-up with neurology clinic for dementing disorders. I will contact with [facility] neurology to set up an appointment. Plan As seen above. Thank for the consultation. History of Present Illness Reason for Consultation: Hallucination and cognitive decline Requesting Physician: Samantha Lovett MD Attending Physician: Samantha Lovett MD History of Present Illness The patient is 77-year-old female, who was brought to emergency department yesterday, due to recently worsening visual hallucinations, and questionable left-sided weakness. Physical examination did not reveal any focal neurological deficit. Apparently, the patient lives one of her daughter. She has been having visual hallucinations mostly in evening hours, which does not bother her. She feels that they are not real. She has been having difficulty sleeping at night. She gets naps during daytime many hours. According to daughters, the patient's cognitive functioning has been gradually declining. She repeats herself. She cannot remember recent events. However, she eats and drinks well, without any change of social interactions and sense of humor. They have not noticed any seizure or seizure-like activities or head and neck trauma. In emergency department, head CT, CT angiogram of head and neck were unremarkable and did not show acute pathology but frontal, old injury related changes. The patient was hospitalized for further evaluation. Brain MRI was done today, which showed small, nodular shape right posterior frontal T2 dark T1 bright lesion. This can be an artifact but other possibilities including small hemorrhage or less likely metastases are considered in differential. After discussing case with neurosurgery in [place], we decided to repeat head CT in 1 to 2 days to find out whether it is an artifactual or actual lesion. The patient has not been evaluated before for cognitive decline. She has no parkinsonian symptoms. Her ambulation has been more challenging because of arthritis. She has history of metastatic breast cancer which has been in remission. I have reviewed the patient's chart including imaging studies and visualized them independently. I have discussed the case with the patient, family, and hospitalist physician. Allergies Allergy/AdvReac Type Severity Reaction Status Date / Time No Known Allergies Allergy Verified 07/17/22 16:51 Home Medications Medication Instructions Recorded Confirmed Type atorvastatin 10 mg tablet 10 mg PO QAM 11/16/18 07/17/22 History cholecalciferol (vitamin D3) 50 2,000 units PO QAM 11/16/18 07/17/22 History mcg (2,000 unit) capsule levothyroxine 50 mcg capsule 50 mcg PO QAM 11/16/18 07/17/22 History letrozole 2.5 mg tablet 2.5 mg PO QAM 10/11/19 07/17/22 History lisinopril 40 mg tablet 40 mg PO QAM 10/11/19 07/17/22 History pantoprazole 40 mg tablet,delayed 40 mg PO DAILY 07/17/22 07/17/22 History release Patient History Medical History (Updated 07/18/22 @ 13:48 by Jayson Erazo MD) Breast cancer, right breast h/o 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 Maya H/O partial mastectomy (07/2010) Right sentinel node and right partial mastectomy Dr. Maya History of esophagogastroduodenoscopy (EGD) History of partial mastectomy (08/2010) Re-excision of right breast Dr. Maya S/P appendectomy Age 16 S/P biopsy (12/20/18) Open Excisional Biopsy Anterior Chest Wall with Frozen Section Dr. 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 HENT: Normal exam with inspection. CV: Hearth rhythm is regular. Neck: Supple, no carotid bruits. Lungs: Non-labored and comfortable breathing. Abdomen: Soft, non-tender, non-distended. Skin: No rash or ecchymosis. Extremities: No edema or cyanosis NEUROLOGICAL EXAMINATION: Mental Status: Alert and oriented to place, person and time. Cranial Nerves: II-XII are intact. No nystagmus. Funduscopy: Normal looking optic discs. Motor: 5-/5 in all extremities without asymmetry. Tone: Normal without spasticity or rigidity. Sensory: Intact grossly with decreased vibratory sensation in feet Coordination: No dysmetria with FTN testing. Speech: Fluent. Comprehension is intact. Gait: Slightly wide based and unsteady. Slight limp is also noticed. No ataxia or other abnormal walking pattern. Musculoskeletal: Normal muscle bulk, no atrophy. DTRs: 2- in upper and 1+ in lower extremities. No babinsky. Results & Data Vital Signs (Past 12 Hours) Vital Signs Temp Pulse Pulse Resp BP Pulse Ox O2 Del Method 07/18/22 11:03 36.5 C 83 18 148/74 H 92 Room Air 07/18/22 08:30 Room Air 07/18/22 08:20 75 07/18/22 07:28 36.8 C 76 18 164/77 H 94 Room Air 07/18/22 02:47 36.4 C L 76 18 141/69 H 93 Room Air Laboratory Results Laboratory Results - last 24 hr 07/17/22 07/17/22 07/17/22 16:24 16:24 16:24 WBC 6.62 RBC 4.85 Hgb 13.8 POC Hgb Hct 42.0 POC Hct MCV 86.6 MCH 28.5 MCHC 32.9 RDW Std Deviation 41.1 RDW Coeff of [place] 13.1 Plt Count 211 MPV 11.2 Immature Gran % (Auto) 0.3 Neut % (Auto) 75.1 Lymph % (Auto) 13.7 [place] % (Auto) 9.2 Eos % (Auto) 1.4 Baso % (Auto) 0.3 Neut # (Auto) 4.97 Lymph # (Auto) 0.91 L [place] # (Auto) 0.61 H Eos # (Auto) 0.09 Baso # (Auto) 0.02 Immature Gran # (Auto) 0.02 PT 11.2 INR 1.1 APTT 25.2 PTT Ratio 0.9 POC Sodium Sodium 142 POC Potassium Potassium 3.6 POC Chloride Chloride 107 Carbon Dioxide 29 POC Total CO2 Anion Gap 6 POC Anion Gap POC BUN BUN 15 Creatinine 0.97 POC Creatinine Est Cr Clr Drug Dosing 46.9 Est GFR ( Amer) 64.8 Est GFR (Non-Af Amer) 55.9 BUN/Creatinine Ratio 15.5 Glucose 100 H POC Glucose (other) Lactate Calcium 10.0 POC Ioniz Calcium Coleman Magnesium 1.8 Total Bilirubin 1.4 H AST 19 ALT 15 Alkaline Phosphatase 57 Ammonia Total Creatine Kinase 97 Troponin I High Sens 5.7 Total Protein 6.9 Albumin 4.1 Globulin 2.8 Albumin/Globulin Ratio 1.5 Urine Color Urine Appearance Urine pH Ur Specific Gays Urine Protein Urine Glucose (UA) Urine Ketones Urine Blood Urine Nitrite Urine Bilirubin Urine Urobilinogen Ur Leukocyte Esterase Urine WBC (Auto) Urine RBC (Auto) U Hyaline Cast (Auto) U Epithel Cells (Auto) Urine Bacteria (Auto) SARS-CoV-2 (PCR) Influenza Type A (PCR) Influenza Type B (PCR) RSV (RT-PCR) 07/17/22 07/17/22 07/17/22 16:24 16:24 16:47 WBC RBC Hgb POC Hgb 14.6 Hct POC Hct 43 MCV MCH MCHC RDW Std Deviation RDW Coeff of [place] Plt Count MPV Immature Gran % (Auto) Neut % (Auto) Lymph % (Auto) [place] % (Auto) Eos % (Auto) Baso % (Auto) Neut # (Auto) Lymph # (Auto) [place] # (Auto) Eos # (Auto) Baso # (Auto) Immature Gran # (Auto) PT INR APTT PTT Ratio POC Sodium 143 Sodium POC Potassium 3.4 Potassium POC Chloride 103 Chloride Carbon Dioxide POC Total CO2 26 Anion Gap POC Anion Gap 18.0 POC BUN 13 BUN Creatinine POC Creatinine 1.0 Est Cr Clr Drug Dosing Est GFR ( Amer) Est GFR (Non-Af Amer) BUN/Creatinine Ratio Glucose POC Glucose (other) 99 Lactate 0.9 Calcium POC Ioniz Calcium Coleman 1.26 Magnesium Total Bilirubin AST ALT Alkaline Phosphatase Ammonia Total Creatine Kinase Troponin I High Sens Total Protein Albumin Globulin Albumin/Globulin Ratio Urine Color Urine Appearance Urine pH Ur Specific Gays Urine Protein Urine Glucose (UA) Urine Ketones Urine Blood Urine Nitrite Urine Bilirubin Urine Urobilinogen Ur Leukocyte Esterase Urine WBC (Auto) Urine RBC (Auto) U Hyaline Cast (Auto) U Epithel Cells (Auto) Urine Bacteria (Auto) SARS-CoV-2 (PCR) NEGATIVE Influenza Type A (PCR) Negative Influenza Type B (PCR) Negative RSV (RT-PCR) Negative 07/17/22 07/17/22 07/18/22 17:03 18:39 05:21 WBC 5.64 RBC 4.29 Hgb 12.1 POC Hgb Hct 36.7 L POC Hct MCV 85.5 MCH 28.2 MCHC 33.0 RDW Std Deviation 40.5 RDW Coeff of [place] 13.2 Plt Count 179 MPV 11.5 Immature Gran % (Auto) 0.2 Neut % (Auto) 64.2 Lymph % (Auto) 19.7 [place] % (Auto) 12.4 Eos % (Auto) 2.8 Baso % (Auto) 0.7 Neut # (Auto) 3.62 Lymph # (Auto) 1.11 L [place] # (Auto) 0.70 H Eos # (Auto) 0.16 Baso # (Auto) 0.04 Immature Gran # (Auto) 0.01 PT INR APTT PTT Ratio POC Sodium Sodium POC Potassium Potassium POC Chloride Chloride Carbon Dioxide POC Total CO2 Anion Gap POC Anion Gap POC BUN BUN Creatinine POC Creatinine Est Cr Clr Drug Dosing Est GFR ( Amer) Est GFR (Non-Af Amer) BUN/Creatinine Ratio Glucose POC Glucose (other) Lactate Calcium POC Ioniz Calcium Coleman Magnesium Total Bilirubin AST ALT Alkaline Phosphatase Ammonia 23.0 Total Creatine Kinase Troponin I High Sens Total Protein Albumin Globulin Albumin/Globulin Ratio Urine Color Yellow Urine Appearance Clear Urine pH 7.0 Ur Specific Gays > 1.045 H Urine Protein Trace H Urine Glucose (UA) Negative Urine Ketones Trace H Urine Blood Trace H Urine Nitrite Negative Urine Bilirubin Negative Urine Urobilinogen Negative Ur Leukocyte Esterase Trace H Urine WBC (Auto) 1-5 Urine RBC (Auto) 0-4 U Hyaline Cast (Auto) 1-5 U Epithel Cells (Auto) 20-30 H Urine Bacteria (Auto) Negative SARS-CoV-2 (PCR) Influenza Type A (PCR) Influenza Type B (PCR) RSV (RT-PCR) 07/18/22 05:21 WBC RBC Hgb POC Hgb Hct POC Hct MCV MCH MCHC RDW Std Deviation RDW Coeff of [place] Plt Count MPV Immature Gran % (Auto) Neut % (Auto) Lymph % (Auto) [place] % (Auto) Eos % (Auto) Baso % (Auto) Neut # (Auto) Lymph # (Auto) [place] # (Auto) Eos # (Auto) Baso # (Auto) Immature Gran # (Auto) PT INR APTT PTT Ratio POC Sodium Sodium 143 POC Potassium Potassium 3.3 L POC Chloride Chloride 110 H Carbon Dioxide 27 POC Total CO2 Anion Gap 6 POC Anion Gap POC BUN BUN 14 Creatinine 0.82 POC Creatinine Est Cr Clr Drug Dosing 55.3 Est GFR ( Amer) 79.4 Est GFR (Non-Af Amer) 68.5 BUN/Creatinine Ratio 17.1 Glucose 95 POC Glucose (other) Lactate Calcium 8.6 POC Ioniz Calcium Coleman Magnesium 1.8 Total Bilirubin AST ALT Alkaline Phosphatase Ammonia Total Creatine Kinase Troponin I High Sens Total Protein Albumin Globulin Albumin/Globulin Ratio Urine Color Urine Appearance Urine pH Ur Specific Gays Urine Protein Urine Glucose (UA) Urine Ketones Urine Blood Urine Nitrite Urine Bilirubin Urine Urobilinogen Ur Leukocyte Esterase Urine WBC (Auto) Urine RBC (Auto) U Hyaline Cast (Auto) U Epithel Cells (Auto) Urine Bacteria (Auto) SARS-CoV-2 (PCR) Influenza Type A (PCR) Influenza Type B (PCR) RSV (RT-PCR) Diagnostic Findings Head CT 07/17/22 16:08 CT angio neck with con, CT head/brain wo con, CT angio head w con CLINICAL HISTORY: confusion, right side issues x2 days TECHNIQUE: Contiguous axial CT images of the head were acquired from the base of the skull to the vertex without intravenous contrast administration. CT angiography of the head and neck was performed following intravenous administration of iodinated contrast. Coronal and sagittal MIPS were obtained from the axial data set and were submitted for review. Automated dose lowering techniques and/or adjustment according to patient size were utilized for this examination. All measurements were calculated based on NASCET criteria. CT DOSE: 1186.40 mGy.cm Comparison: None available at the time of this dictation. FINDINGS: CT head: There is no acute intracranial hemorrhage or evidence of acute territorial infarction. No shift of the midline structures, mass effect, or extra-axial abnormalities are shown. There is a left thyroid nodule measuring 26 mm in diameter. CTA Neck: A 3 vessel aortic arch is shown. There is no significant atherosclerotic plaque in the aortic arch or the origins of the innominate, left common carotid, and left subclavian arteries. The common carotid, external carotid, cervical segments of the internal carotid arteries, and the cervical segments of the vertebral arteries are patent without hemodynamically significant stenosis. The left vertebral artery is dominant. CTA Head: The anterior and posterior cerebral circulations are patent. origin of the bilateral posterior cerebral arteries noted. IMPRESSION: 1. No acute intracranial hemorrhage, evidence of acute territorial infarction, or other acute intracranial disease process. 2. No occlusion, hemodynamically significant stenosis, or dissection in the major cervical arteries. 3. No occlusion, hemodynamically significant stenosis, aneurysm, dissection, or arteriovenous malformation in the major intracranial arteries. Assessment of stenosis of the internal carotid arteries is based on NASCET criteria. ACT 112: Negative or not required by law. Electronically signed by: Dm Figueredo M.D. 07/17/2022 6:27 PM Head CTA 07/17/22 16:08 CT angio neck with con, CT head/brain wo con, CT angio head w con CLINICAL HISTORY: confusion, right side issues x2 days TECHNIQUE: Contiguous axial CT images of the head were acquired from the base of the skull to the vertex without intravenous contrast administration. CT angiography of the head and neck was performed following intravenous administration of iodinated contrast. Coronal and sagittal MIPS were obtained from the axial data set and were submitted for review. Automated dose lowering techniques and/or adjustment according to patient size were utilized for this examination. All measurements were calculated based on NASCET criteria. CT DOSE: 1186.40 mGy.cm Comparison: None available at the time of this dictation. FINDINGS: CT head: There is no acute intracranial hemorrhage or evidence of acute territorial infarction. No shift of the midline structures, mass effect, or extra-axial abnormalities are shown. There is a left thyroid nodule measuring 26 mm in diameter. CTA Neck: A 3 vessel aortic arch is shown. There is no significant atherosclerotic plaque in the aortic arch or the origins of the innominate, left common carotid, and left subclavian arteries. The common carotid, external carotid, cervical segments of the internal carotid arteries, and the cervical segments of the vertebral arteries are patent without hemodynamically significant stenosis. The left vertebral artery is dominant. CTA Head: The anterior and posterior cerebral circulations are patent. origin of the bilateral posterior cerebral arteries noted. IMPRESSION: 1. No acute intracranial hemorrhage, evidence of acute territorial infarction, or other acute intracranial disease process. 2. No occlusion, hemodynamically significant stenosis, or dissection in the major cervical arteries. 3. No occlusion, hemodynamically significant stenosis, aneurysm, dissection, or arteriovenous malformation in the major intracranial arteries. Assessment of stenosis of the internal carotid arteries is based on NASCET criteria. ACT 112: Negative or not required by law. Electronically signed by: Dm Figueredo M.D. 07/17/2022 6:27 PM Neck CTA 07/17/22 16:08 CT angio neck with con, CT head/brain wo con, CT angio head w con CLINICAL HISTORY: confusion, right side issues x2 days TECHNIQUE: Contiguous axial CT images of the head were acquired from the base of the skull to the vertex without intravenous contrast administration. CT angiography of the head and neck was performed following intravenous administration of iodinated contrast. Coronal and sagittal MIPS were obtained from the axial data set and were submitted for review. Automated dose lowering techniques and/or adjustment according to patient size were utilized for this examination. All measurements were calculated based on NASCET criteria. CT DOSE: 1186.40 mGy.cm Comparison: None available at the time of this dictation. FINDINGS: CT head: There is no acute intracranial hemorrhage or evidence of acute territorial infarction. No shift of the midline structures, mass effect, or extra-axial abnormalities are shown. There is a left thyroid nodule measuring 26 mm in diameter. CTA Neck: A 3 vessel aortic arch is shown. There is no significant atherosclerotic plaque in the aortic arch or the origins of the innominate, left common carotid, and left subclavian arteries. The common carotid, external carotid, cervical segments of the internal carotid arteries, and the cervical segments of the vertebral arteries are patent without hemodynamically significant stenosis. The left vertebral artery is dominant. CTA Head: The anterior and posterior cerebral circulations are patent. origin of the bilateral posterior cerebral arteries noted. IMPRESSION: 1. No acute intracranial hemorrhage, evidence of acute territorial infarction, or other acute intracranial disease process. 2. No occlusion, hemodynamically significant stenosis, or dissection in the major cervical arteries. 3. No occlusion, hemodynamically significant stenosis, aneurysm, dissection, or arteriovenous malformation in the major intracranial arteries. Assessment of stenosis of the internal carotid arteries is based on NASCET criteria. ACT 112: Negative or not required by law. Electronically signed by: Dm Figueredo M.D. 07/17/2022 6:27 PM Brain MRI 07/18/22 00:27 CR Exam(s): MRI HEAD W/WO Contrast EXAM: MR Head Without and With Intravenous Contrast CLINICAL HISTORY: Reason for exam: confusion, hallucinations. TECHNIQUE: Magnetic resonance images of the head/brain without and with intravenous contrast in multiple planes. CONTRAST: Contrast must be dictated COMPARISON: Head CT 07/17/2022. FINDINGS: Brain: There is a 4.1 x 4.0 mm T2 dark and T1 bright nodule in the subcortical white matter of the posterior right frontal lobe with mild vasogenic edema which does not demonstrate significant enhancement. Remote ischemic injury of the left frontal lobe with encephalomalacia and gliosis. Moderate nonspecific white matter changes. No evidence of abnormal enhancement. No mass. No hemorrhage. No acute infarct. The flow voids at the base of the brain are intact. Ventricles: Unremarkable. No ventriculomegaly. Bones/joints: Unremarkable. Sinuses: Chronic ethmoid sinusitis. No acute sinusitis. Mastoid air cells: Unremarkable as visualized. No mastoid effusion. Orbits: Unremarkable as visualized. IMPRESSION: There is a 4.1 x 4.0 mm T2 dark and T1 bright nodule in the subcortical white matter of the posterior right frontal lobe with mild vasogenic edema concerning for acute intraparenchymal hemorrhage, much less likely metastatic disease. Remote ischemic injury of the left frontal lobe with encephalomalacia and gliosis. Moderate nonspecific white matter changes. Communications: Call Doctor Above results Electronically signed by: Maura Frausto MD 07/18/22 03:43 AM
--- NOTE | 2022-07-18 16:53 | Hospitalist Progress Note ---
Date of Service July 18, 2022 Assessment & Plan (1) Hallucinations: Plan: Has been complaining of hallucinations mostly visual Denies any more hallucinations since admission Seems to be more confused as per the daughters MRI showed questionable small bleed and repeat CT scan of the head will be done today to rule out bleeding Likely the cause is sundowning Will try small dose of Seroquel at nighttime Questionable bleed in the brain in MRI The admitting doctor did discuss with the neurosurgery in [facility] any bleeding and will have a repeat CAT scan to evaluate that further Likely not the cause for visual hallucination and confusion We will get PT and OT evaluation prior to discharge (2) Cognitive decline: Plan: Occasional confusion Likely secondary to dementia We will need to outpatient investigation for that No signs and or symptoms of infection (3) Encephalomalacia: Plan: MRI did show encephalomalacia (4) Hypertension: Plan: Remains stable and continue current medications (5) Hyperlipidemia: Plan: No significant issues (6) Hypothyroidism: Plan: Continue supplement (7) Microcytic anemia: Plan: Hemoglobin remains normal at 12.1 DVT prophylaxis Subcu heparin CODE STATUS Full Admission and Anticipated Discharge Date Admission Date: July 17, 2022 Subjective 07/18/2022 The patient was seen and examined in medical telemetry unit in presence of the daughters She has been stable and cannot remember why she is in the hospital She is simply pleasantly confused but denies any acute symptoms She was answering questions appropriately and wanted to go home Review of Systems Review of Systems: All systems reviewed and are unremarkable except as noted below Physical Exam Physical Exam: Lying in bed comfortably Constitutional: well developed, well nourished, + ill appearing and + obese Eyes: PERRL, conjunctivae normal, anicteric sclerae ENMT: external ear and nose normal, oropharynx normal Respiratory: no respiratory distress Auscultation: lungs clear to auscultation bilaterally Cardiovascular: Rate/Rhythm: regular rate and regular rhythm; not tachycardic Heart Sounds: normal S1 and normal S2; no murmur Extremities: + edema (Trace edema bilaterally) Gastrointestinal (Abdomen): Inspection/Auscultation: normal bowel sounds; abdomen not distended Percussion/Palpation: abdomen soft; abdomen nontender Musculoskeletal: No acute arthritis involving any joint Neurologic: Alert, awake. Pleasantly confused. Moving all limbs equally. No focal neurodeficit. Denies any visual symptoms Lymphatic: no cervical or axillary lymphadenopathy Results & Data Results & Data Vital Signs (Past 12 Hours) Vital Signs Temp Pulse Pulse Resp BP BP Pulse Ox 07/18/22 15:34 37.0 C 82 16 121/71 94 07/18/22 15:10 84 07/18/22 11:03 36.5 C 83 18 148/74 H 92 07/18/22 08:30 07/18/22 08:20 75 07/18/22 07:28 36.8 C 76 18 164/77 H 94 O2 Del Method 07/18/22 15:34 Room Air 07/18/22 15:10 07/18/22 11:03 Room Air 07/18/22 08:30 Room Air 07/18/22 08:20 07/18/22 07:28 Room Air Laboratory Results Short CBC 07/17/22 07/18/22 Range/Units 16:24 05:21 WBC 6.62 5.64 (4.8-10.8) K/ul Hgb 13.8 12.1 (12.0-16.0) g/dl Hct 42.0 36.7 L (37.0-47.0) % Plt Count 211 179 (130-400) K/uL BMP 07/17/22 07/18/22 16:24 05:21 Sodium 142 143 Potassium 3.6 3.3 L Chloride 107 110 H Carbon Dioxide 29 27 BUN 15 14 Creatinine 0.97 0.82 Glucose 100 H 95 Calcium 10.0 8.6 Cardiac Enzymes 07/17/22 Range/Units 16:24 Total Creatine Kinase 97 (26-192) U/L Liver Function 07/17/22 Range/Units 16:24 Total Bilirubin 1.4 H (0.2-1.0) mg/dl AST 19 (13-39) U/L ALT 15 (7-52) U/L Alkaline Phosphatase 57 (34-104) U/L Albumin 4.1 (3.4-5.0) gm/dl Urine 07/17/22 Range/Units 18:39 Urine Color Yellow Urine Appearance Clear (Clear) Urine pH 7.0 (4.5-7.5) Ur Specific [place] > 1.045 H (1.000-1.030) Urine Protein Trace H (Negative) Urine Glucose (UA) Negative (Negative) Medications Administered Current Inpatient Medications Acetaminophen (Acetaminophen 325 Mg Tab) 650 mg PO Q4H PRN PRN Reason: Pain or Fever Stop: 08/16/22 21:29 Atorvastatin Calcium (Atorvastatin 10 Mg Tab) 10 mg PO [facility] Stop: 08/17/22 08:59 Last Admin: 07/18/22 08:02 Dose: 10 mg Hydralazine HCl (Hydralazine Hcl 20 Mg/Ml Vial) 5 mg IV Q6H PRN PRN Reason: Hypertension Stop: 08/16/22 21:29 Letrozole (Letrozole 2.5 Mg Tab) 2.5 mg PO [facility] Stop: 08/17/22 08:59 Last Admin: 07/18/22 08:02 Dose: 2.5 mg Levothyroxine Sodium (Levothyroxine Sodium 50 Mcg Tablet) [facility] Stop: 08/17/22 06:29 Last Admin: 07/18/22 06:18 Dose: 50 mcg Lisinopril (Lisinopril 40 Mg Tab) 40 mg PO [facility] Stop: 08/17/22 08:59 Last Admin: 07/18/22 08:02 Dose: 40 mg Nitroglycerin (Nitroglycerin Sl 0.4 Mg/Tab Tab) 0.4 mg SL UD PRN PRN Reason: Chest Pain Stop: 08/16/22 21:29 Pantoprazole Sodium (Pantoprazole 40 Mg Tab) 40 mg PO DAILY [facility] Stop: 08/17/22 08:59 Last Admin: 07/18/22 08:02 Dose: 40 mg Polyethylene Glycol (Polyethylene (Miralax) 17 Gm Pack) 17 gm PO DAILY PRN PRN Reason: Constipation Stop: 08/16/22 21:29 Vitamin D (Cholecalciferol 1,000 Units 25 Mcg Tab) 2,000 units PO [facility] Stop: 08/17/22 08:59 Last Admin: 07/18/22 08:02 Dose: 2,000 units
--- NOTE | 2022-07-18 17:06 | CT Scan Report ---
CT OF THE HEAD WITHOUT CONTRAST CLINICAL HISTORY: 4mm intraparenchymal hemorrhage on mri COMPARISON STUDY: Head CT and CTA of the head July 17, 2022. MRI of the brain performed earlier toda y. CT DOSE: 537.48 mGy.cm TECHNIQUE: Helical axial images of the head were obtained without IV contrast. Automated exposure con trol was utilized for the study. A dose lowering technique was utilized adhering to the principles o f ALARA. FINDINGS: Note is made of a subtle 4 mm hyperdense subcortical focus within the right parietal lobe o n axial image of . This corresponds to the T1 hyperintense focus on MRI performed earlier today. Suspected encephalomalacia within left frontal lobe is noted. White matter hypodensities suggest sma ll vessel disease. Ventricular system is stable. Basal cisterns are patent. There are no calvarial fr actures. IMPRESSION: Subtle 4 mm subcortical hyperdense focus within the right parietal lobe which corresponds to the find ing on MRI performed earlier today. This favors a small focus of acute hemorrhage. Although less like ly, an underlying lesion could appear similar. A follow-up head CT in 2-3 days is recommended. ACT 112: Negative or not required by law. Electronically signed by: Madhu Monteiro M.D. 07/18/2022 5:04 PM
[2022-07-18] MEDS: MELATONIN 3 MG TAB PO PRN (21:02)
[2022-07-19] MEDS: LEVOTHYROXINE SODIUM 50 MCG TABLET PO SCH (06:10)
[2022-07-19 07:19] LABS: Basophils # (auto) 0.04 K/uL (0-0.2); Basophils % (auto) 0.9 %; Eosinophils # (auto) 0.19 K/uL (0-0.50); Eosinophils % (auto) 4.1 %; Hematocrit (blood only) 38.2 % (37.0-47.0); Hemoglobin 12.4 g/dl (12.0-16.0); Immature Granulocytes # (auto) 0.01 K/uL (0.01-0.20); Immature Granulocytes % (auto) 0.2 %; Lymphocytes # (auto) 1.08 K/uL (1.2-3.4); Lymphocytes % (auto) 23.6 %; Mean Corpuscular Hemoglobin 28.2 pg (25.0-34.0); Mean Corpuscular Hgb Conc 32.5 g/dL (32.0-36.0); Mean Corpuscular Volume 86.8 fL (80.0-100.0); Mean Platelet Volume 11.1 fL (9.4-12.4); Monocytes # (auto) 0.57 K/uL (0.11-0.59); Monocytes % (auto) 12.4 %; Neutrophils # (auto) 2.69 K/uL (1.40-6.50); Neutrophils % (auto) 58.8 %; Platelet Count 176 K/uL (130-400); RDW Coefficient of Variation 12.9 % (11.5-14.5); RDW Standard Deviation 40.9 fL (36.4-46.3); White Blood Count 4.58 K/ul (4.8-10.8)
[2022-07-19 07:42] LABS: BUN Creatinine Ratio 19.1 (10-20); Creatinine Clr Calc Pharmacy 47.3 ml/min; Est GFR (African American) 67.3 ml/min; Est GFR (Non-African American) 58.1 ml/min; Potassium 3.9 mmol/L (3.5-5.1)
[2022-07-19] MEDS: lisinopril 40 MG TAB PO SCH (08:54)
[2022-07-19] MEDS: PANTOprazole 40 MG TAB PO SCH (08:54)
[2022-07-19] MEDS: LETROZOLE 2.5 MG TAB PO SCH (08:54)
[2022-07-19] MEDS: ATORVASTATIN 10 MG TAB PO SCH (08:54)
[2022-07-19] MEDS: CHOLECALCIFEROL 1,000 UNITS 25 MCG TAB PO SCH (08:54)
--- NOTE | 2022-07-19 14:02 | Hospitalist Progress Note ---
Date of Service July 19, 2022 Assessment & Plan (1) Hallucinations: Plan: Has been complaining of hallucinations mostly visual Denies any more hallucinations since admission Seems to be more confused as per the daughters MRI showed questionable small bleed and repeat CT scan of the head will be done today to rule out bleeding Likely the cause is sundowning Will try small dose of Seroquel at nighttime Did not have any problem with sleeping last night but will try to start Seroquel from tonight Possible nontraumatic small intracranial hemorrhage Questionable bleed in the brain in MRI The admitting doctor did discuss with the neurosurgery in [place] Doubt any bleeding and will have a repeat CAT scan to evaluate that further Likely not the cause for visual hallucination and confusion Repeat CT without contrast last evening did not show possible bleeding as before and recommended to have a repeat CT scan in about 2 to 3 days (2) Cognitive decline: Plan: Occasional confusion Likely secondary to dementia We will need to outpatient investigation for that No signs and or symptoms of infection (3) Encephalomalacia: Plan: MRI did show encephalomalacia (4) Hypertension: Plan: Remains stable and continue current medications Blood pressure is controlled (5) Hyperlipidemia: Plan: No significant issues (6) Hypothyroidism: Plan: Continue supplement (7) Microcytic anemia: Plan: Hemoglobin remains normal at 12.1 DVT prophylaxis Subcu heparin CODE STATUS Full Admission and Anticipated Discharge Date Admission Date: July 17, 2022 Subjective 07/18/2022 The patient was seen and examined in medical telemetry unit in presence of the daughters She has been stable and cannot remember why she is in the hospital She is simply pleasantly confused but denies any acute symptoms She was answering questions appropriately and wanted to go home 07/19/2022 The patient was seen and examined in medical telemetry unit She has been feeling much better and remains pleasantly confused Denies any new neuro symptoms Denies any headache, blurred vision, no numbness and or tingling involving any of the extremities no weakness in any side of the body Review of Systems Review of Systems: All systems reviewed and are unremarkable except as noted below Physical Exam Physical Exam: Lying in bed comfortably Constitutional: well developed, well nourished, + ill appearing and + obese Eyes: PERRL, conjunctivae normal, anicteric sclerae ENMT: external ear and nose normal, oropharynx normal Respiratory: no respiratory distress Auscultation: lungs clear to auscultation bilaterally Cardiovascular: Rate/Rhythm: regular rate and regular rhythm; not tachycardic Heart Sounds: normal S1 and normal S2; no murmur Extremities: + edema (Trace edema bilaterally) Gastrointestinal (Abdomen): Inspection/Auscultation: normal bowel sounds; abdomen not distended Percussion/Palpation: abdomen soft; abdomen nontender Musculoskeletal: No acute arthritis involving any of the joint Neurologic: normal touch/pain/proprioception and moves all extremities; no focal motor deficits Psychiatric: A+Ox3, euthymic affect Lymphatic: no cervical or axillary lymphadenopathy Results & Data Results & Data Vital Signs (Past 12 Hours) Vital Signs Temp Pulse Pulse Resp BP BP Pulse Ox 07/19/22 08:00 78 07/19/22 11:20 36.9 C 74 18 146/76 H 92 07/19/22 07:54 36.8 C 71 16 157/81 H 95 07/19/22 03:48 36.7 C 72 18 131/73 96 O2 Del Method 07/19/22 08:00 07/19/22 11:20 Room Air 07/19/22 07:54 Room Air 07/19/22 03:48 Room Air Laboratory Results Short CBC 07/19/22 Range/Units 06:58 WBC 4.58 L (4.8-10.8) K/ul Hgb 12.4 (12.0-16.0) g/dl Hct 38.2 (37.0-47.0) % Plt Count 176 (130-400) K/uL BMP 07/19/22 06:58 Sodium 142 Potassium 3.9 Chloride 111 H Carbon Dioxide 28 BUN 18 Creatinine 0.94 Glucose 107 H Calcium 9.0 Medications Administered Current Inpatient Medications Acetaminophen (Acetaminophen 325 Mg Tab) 650 mg PO Q4H PRN PRN Reason: Pain or Fever Stop: 08/16/22 21:29 Last Admin: 07/18/22 21:02 Dose: 650 mg Atorvastatin Calcium (Atorvastatin 10 Mg Tab) 10 mg PO QAM [facility] Stop: 08/17/22 08:59 Last Admin: 07/19/22 08:54 Dose: 10 mg Hydralazine HCl (Hydralazine Hcl 20 Mg/Ml Vial) 5 mg IV Q6H PRN PRN Reason: Hypertension Stop: 08/16/22 21:29 Letrozole (Letrozole 2.5 Mg Tab) [facility] [place]: 08/17/22 08:59 Last Admin: 07/19/22 08:54 Dose: 2.5 mg Levothyroxine Sodium (Levothyroxine Sodium 50 Mcg Tablet) 50 mcg PO DAILYBB [facility] Stop: 08/17/22 06:29 Last Admin: 07/19/22 06:10 Dose: 50 mcg Lisinopril (Lisinopril 40 Mg Tab) 40 mg PO [facility] Stop: 08/17/22 08:59 Last Admin: 07/19/22 08:54 Dose: 40 mg Melatonin (Melatonin 3 Mg Tab) 3 mg PO HS PRN PRN Reason: Sleep Stop: 08/17/22 20:11 Last Admin: 07/18/22 21:02 Dose: 3 mg Nitroglycerin (Nitroglycerin Sl 0.4 Mg/Tab Tab) 0.4 mg SL UD PRN PRN Reason: Chest Pain Stop: 08/16/22 21:29 Pantoprazole Sodium (Pantoprazole 40 Mg Tab) 40 mg PO DAILY [facility] Stop: 08/17/22 08:59 Last Admin: 07/19/22 08:54 Dose: 40 mg Polyethylene Glycol (Polyethylene (Miralax) 17 Gm Pack) 17 gm PO DAILY PRN PRN Reason: Constipation Stop: 08/16/22 21:29 Vitamin D (Cholecalciferol 1,000 Units 25 Mcg Tab) 2,[facility] Stop: 08/17/22 08:59 Last Admin: 07/19/22 08:54 Dose: 2,000 units
[2022-07-19] MEDS: QUEtiapine FUMARATE 25 MG TABLET PO SCH (21:03)
[2022-07-19] MEDS: MELATONIN 3 MG TAB PO PRN (21:04)
[2022-07-20] MEDS: LEVOTHYROXINE SODIUM 50 MCG TABLET PO SCH (06:25)
[2022-07-20 07:36] LABS: Basophils # (auto) 0.04 K/uL (0-0.2); Basophils % (auto) 0.7 %; Eosinophils # (auto) 0.23 K/uL (0-0.50); Eosinophils % (auto) 3.9 %; Hematocrit (blood only) 38.8 % (37.0-47.0); Hemoglobin 12.7 g/dl (12.0-16.0); Immature Granulocytes # (auto) 0.01 K/uL (0.01-0.20); Immature Granulocytes % (auto) 0.2 %; Lymphocytes % (auto) 21.9 %; Mean Corpuscular Hemoglobin 28.1 pg (25.0-34.0); Mean Corpuscular Hgb Conc 32.7 g/dL (32.0-36.0); Mean Corpuscular Volume 85.8 fL (80.0-100.0); Mean Platelet Volume 11.4 fL (9.4-12.4); Monocytes # (auto) 0.64 K/uL (0.11-0.59); Monocytes % (auto) 10.8 %; Neutrophils # (auto) 3.71 K/uL (1.40-6.50); Neutrophils % (auto) 62.5 %; Platelet Count 194 K/uL (130-400); RDW Coefficient of Variation 13.2 % (11.5-14.5); RDW Standard Deviation 41.3 fL (36.4-46.3); Red Blood Count 4.52 M/uL (4.20-5.40); White Blood Count 5.93 K/ul (4.8-10.8)
[2022-07-20 08:09] LABS: BUN Creatinine Ratio 17.3 (10-20); Calcium 9.1 mg/dl (8.6-10.3); Creatinine Clr Calc Pharmacy 45.1 ml/min; Est GFR (Non-African American) 55.3 ml/min; Potassium 3.6 mmol/L (3.5-5.1)
[2022-07-20] MEDS: CHOLECALCIFEROL 1,000 UNITS 25 MCG TAB PO SCH (08:57)
[2022-07-20] MEDS: LETROZOLE 2.5 MG TAB PO SCH (08:57)
[2022-07-20] MEDS: ATORVASTATIN 10 MG TAB PO SCH (08:57)
[2022-07-20] MEDS: lisinopril 40 MG TAB PO SCH (08:57)
[2022-07-20] MEDS: PANTOprazole 40 MG TAB PO SCH (08:58)
--- NOTE | 2022-07-20 17:33 | Hospitalist Progress Note ---
Date of Service July 20, 2022 Assessment & Plan (1) Hallucinations: Plan: Has been complaining of hallucinations mostly visual. Currently denies any since admission. Confusion much better per daughter at bedside-95% improved MRI showed questionable small bleed and repeat CT scan of the head with the same finding and recommended repeat CT in 2-3 days Seen by neuro. Her symptoms not attributable to imaging finding and likely from Sundowning Started on low-dose of Seroquel with improvement in her symptoms. Recommend follow-up with neurology clinic for dementing disorder. (2) Abnormal CT of brain: Plan: MRI brain - There is a 4.1 x 4.0 mm T2 dark and T1 bright nodule in the subcortical white matter of the posterior right frontal lobe with mild vasogenic edema concerning for acute intraparenchymal hemorrhage, much less likely metastatic disease. CT brain - subtle 4 mm subcortical hyperdense focus within the right parietal lobe which corresponds to the finding on MRI performed earlier today. This favors a small focus of acute hemorrhage. Although less likely, an underlying lesion could appear similar. A follow-up head CT in 2-3 days is recommended. The admitting doctor did discuss with the neurosurgery in [place] We will repeat CT head tomorrow as recommended. (3) Cognitive decline: Plan: Occasional confusion Likely secondary to dementia We will need to outpatient follow-up for that No signs and or symptoms of infection (4) Hypertension: Plan: BP controlled on lisinopril. (5) Hypothyroidism: Plan: Continue Synthroid Plan Hyperlipidemia-on Lipitor Disposition-anticipate discharge tomorrow if CT head stable. Updated daughter at bedside. Admission and Anticipated Discharge Date Admission Date: July 17, 2022 Subjective Patient was seen and examined at bedside in telemetry unit. Sitting comfortably in chair. Daughter at bedside. She denies any issues. Doing better. No fever, chills, chest pain or shortness of breath nausea or vomiting. Review of Systems Review of Systems: All systems reviewed & are unremarkable except as noted in Subjective Physical Exam Physical Exam: General: Sitting comfortably in chair, not in distress, on room air HEENT: EOMI, LÓPEZ, MMM Chest: Clear breath sounds bilaterally, no wheezes or crackles CVS: Regular rate and rhythm, normal heart sounds, no murmur Abdomen: Soft, non tender, not distended, normal bowel sounds Neuro: Awake, alert, oriented, conversing well, non focal Extremities: No cyanosis, clubbing or edema Results & Data Results & Data Vital Signs (Past 12 Hours) Vital Signs Temp Pulse Pulse Resp BP BP Pulse Ox 07/20/22 15:25 36.5 C 83 20 138/83 96 07/20/22 11:23 36.7 C 86 20 137/81 94 07/20/22 07:39 36.5 C 76 18 130/82 96 07/20/22 07:32 63 O2 Del Method 07/20/22 15:25 Room Air 07/20/22 11:23 Room Air 07/20/22 07:39 Room Air 07/20/22 07:32 Laboratory Results Short CBC 07/20/22 Range/Units 07:06 WBC 5.93 (4.8-10.8) K/ul Hgb 12.7 (12.0-16.0) g/dl Hct 38.8 (37.0-47.0) % Plt Count 194 (130-400) K/uL BMP 07/20/22 07:06 Sodium 144 Potassium 3.6 Chloride 111 H Carbon Dioxide 28 BUN 17 Creatinine 0.98 Glucose 95 Calcium 9.1 Medications Administered Current Inpatient Medications Acetaminophen (Acetaminophen 325 Mg Tab) 650 mg PO Q4H PRN PRN Reason: Pain or Fever Stop: 08/16/22 21:29 Last Admin: 07/18/22 21:02 Dose: 650 mg Atorvastatin Calcium (Atorvastatin 10 Mg Tab) 10 mg PO [facility] Stop: 08/17/22 08:59 Last Admin: 07/20/22 08:57 Dose: 10 mg Hydralazine HCl (Hydralazine Hcl 20 Mg/Ml Vial) 5 mg IV Q6H PRN PRN Reason: Hypertension Stop: 08/16/22 21:29 Letrozole (Letrozole 2.5 Mg Tab) 2.5 mg PO [facility] Stop: 08/17/22 08:59 Last Admin: 07/20/22 08:57 Dose: 2.5 mg Levothyroxine Sodium (Levothyroxine Sodium 50 Mcg Tablet) [facility] Stop: 08/17/22 06:29 Last Admin: 07/20/22 06:25 Dose: 50 mcg Lisinopril (Lisinopril 40 Mg Tab) 40 mg PO [facility] Stop: 08/17/22 08:59 Last Admin: 07/20/22 08:57 Dose: 40 mg Melatonin (Melatonin 3 Mg Tab) 3 mg PO HS PRN PRN Reason: Sleep Stop: 08/17/22 20:11 Last Admin: 07/19/22 21:04 Dose: 3 mg Nitroglycerin (Nitroglycerin Sl 0.4 Mg/Tab Tab) 0.4 mg SL UD PRN PRN Reason: Chest Pain Stop: 08/16/22 21:29 Pantoprazole Sodium (Pantoprazole 40 Mg Tab) 40 mg PO DAILY [facility] Stop: 08/17/22 08:59 Last Admin: 07/20/22 08:58 Dose: 40 mg Polyethylene Glycol (Polyethylene (Miralax) 17 Gm Pack) 17 gm PO DAILY PRN PRN Reason: Constipation Stop: 08/16/22 21:29 Quetiapine Fumarate (Quetiapine Fumarate 25 Mg Tablet) 12.5 mg PO HS [facility] Stop: 08/18/22 20:59 Last Admin: 07/19/22 21:03 Dose: 12.5 mg Vitamin D (Cholecalciferol 1,000 Units 25 Mcg Tab) 2,[facility] [place]: 08/17/22 08:59 Last Admin: 07/20/22 08:57 Dose: 2,000 units
[2022-07-20] MEDS: QUEtiapine FUMARATE 25 MG TABLET PO SCH (20:34)
[2022-07-21] MEDS: MELATONIN 3 MG TAB PO PRN (00:14)
[2022-07-21] MEDS: LEVOTHYROXINE SODIUM 50 MCG TABLET PO SCH (05:50)
--- NOTE | 2022-07-21 08:50 | CT Scan Report ---
CT head/brain wo con CLINICAL HISTORY: follow up of ?intracranial bleed Technique: Contiguous axial CT images of the head were acquired from the base of the skull to the lizette mukesh without intravenous contrast administration. Images were viewed in brain, subdural and bone [facility]. Automated dose lowering techniques and/or adjustment according to patient size were utilized for this exam. Comparison: Comparison is made to CT head 07/19/2019 Findings: Previously noted right parietal hyperdensity is not well seen on today's exam. Left frontal lobe ence phalomalacia is seen. Imaged portions of the paranasal sinuses and mastoid air cells are clear. The orbits appear normal. There are no acute fractures of the calvaria or scalp swelling. Impression: No focal lesion is seen to correspond to the 4 mm hyperdensity seen on prior exam which may represent expected decrease in density of an acute parenchymal hemorrhage. ACT 112: Negative or not required by law. Electronically signed by: Dm Figueredo M.D. 07/21/2022 8:48 AM
[2022-07-21] MEDS: PANTOprazole 40 MG TAB PO SCH (10:16)
[2022-07-21] MEDS: LETROZOLE 2.5 MG TAB PO SCH (10:17)
[2022-07-21] MEDS: ATORVASTATIN 10 MG TAB PO SCH (10:18)
[2022-07-21] MEDS: CHOLECALCIFEROL 1,000 UNITS 25 MCG TAB PO SCH (10:19)
[2022-07-21] MEDS: lisinopril 40 MG TAB PO SCH (10:20)
--- NOTE | 2022-07-21 14:09 | Discharge Summary ---
Date of Service July 21, 2022 Admission HPI Per Admitting Provider This is a 77-year-old female with past medical history significant for hyperparathyroidism secondary to renal disease, hypothyroidism, hyperlipidemia, history of metastatic breast cancer, GERD, chronic kidney disease stage III, osteoporosis, iron deficiency anemia, who presents with hallucinations and confusion. The patient lives at home with her daughter. She ambulates without any support. Eats and drinks okay. No difficulty swallowing. Since the last 4 days, the patient is getting confused and she says she is seeing things, visual hallucinations. The patient was not getting better, that is the reason she was brought in here. Another daughter is in the room right now. As per the daughter and patient there was no weakness, no slurred speech . Currently eating dinner, eating a sandwich, swallowing okay. Insight seems to be okay, could tell her name, could tell her date of , knows that she is in the hospital, could tell the month, but in the year she told 2032. The patient denies any headache. No chest pain, no abdominal pain, no nausea, no vomiting, occasional cough. No fevers. Normal bowel and bladder movements. Blood pressure is somewhat running high. Admission Exam Per Admitting Provider GENERAL: The patient is of moderate build, not in acute distress. VITAL SIGNS: Temperature 36.5, pulse 80, respiratory rate 15, blood pressure 175/114, oxygen 94% on room air. HEENT: Pupils equal, round, and reactive to light. Oral mucosa moist. NECK: No JVD or neck masses. CARDIOVASCULAR: S1 and S2 heard. Regular rate and rhythm. No murmur, no gallop. RESPIRATORY SYSTEM: Normal AP diameter. No accessory muscle use. No wheezing or crackles. ABDOMEN: Soft, bowel sounds present, nontender, no distention. CENTRAL NERVOUS SYSTEM: Alert and oriented. Speech is clear. No facial droop. Obeys simple commands. Insight is okay. Can lift her upper extremities and also lift the lower extremities and hold. No pronator drift. Coordination of movements normal. Sensation is intact. EXTREMITIES: No edema, no erythema. Principal Diagnosis Dementia with hallucinatinons, confusion, acute intracranial bleed, HTN Discharge Exam General: Sitting comfortably in bed, not in distress, on room air HEENT: EOMI, LÓPEZ, MMM Chest: Clear breath sounds bilaterally, no wheezes or crackles CVS: Regular rate and rhythm, normal heart sounds, no murmur Abdomen: Soft, non tender, not distended, normal bowel sounds Neuro: Awake, alert, oriented, conversing well, non focal Extremities: No cyanosis, clubbing or edema Discharge Data Allergies Allergy/AdvReac Type Severity Reaction Status Date / Time No Known Allergies Allergy Verified 07/17/22 16:51 Consultations 07/17/22 19:02 ED Decision to Admit Stat 07/18/22 08:00 Consult Neurology Routine Ordered Studies Laboratory Results WBC 5.93 K/ul (4.8-10.8) 07/20/22 07:06 RBC 4.52 M/uL (4.20-5.40) 07/20/22 07:06 Hgb 12.7 g/dl (12.0-16.0) 07/20/22 07:06 POC Hgb 14.6 g/dl (12.0-16.0) 07/17/22 16:47 Hct 38.8 % (37.0-47.0) 07/20/22 07:06 POC Hct 43 % (37-47) 07/17/22 16:47 MCV 85.8 fL (80.0-100.0) 07/20/22 07:06 MCH 28.1 pg (25.0-34.0) 07/20/22 07:06 MCHC 32.7 g/dL (32.0-36.0) 07/20/22 07:06 RDW Std Deviation 41.3 fL (36.4-46.3) 07/20/22 07:06 RDW Coeff of [place] 13.2 % (11.5-14.5) 07/20/22 07:06 Plt Count 194 K/uL (130-400) 07/20/22 07:06 MPV 11.4 fL (9.4-12.4) 07/20/22 07:06 Immature Gran % (Auto) 0.2 % 07/20/22 07:06 Neut % (Auto) 62.5 % 07/20/22 07:06 Lymph % (Auto) 21.9 % 07/20/22 07:06 [place] % (Auto) 10.8 % 07/20/22 07:06 Eos % (Auto) 3.9 % 07/20/22 07:06 Baso % (Auto) 0.7 % 07/20/22 07:06 Neut # (Auto) 3.71 K/uL (1.40-6.50) 07/20/22 07:06 Lymph # (Auto) 1.30 K/uL (1.2-3.4) 07/20/22 07:06 [place] # (Auto) 0.64 K/uL (0.11-0.59) H 07/20/22 07:06 Eos # (Auto) 0.23 K/uL (0-0.50) 07/20/22 07:06 Baso # (Auto) 0.04 K/uL (0-0.2) 07/20/22 07:06 Immature Gran # (Auto) 0.01 K/uL (0.01-0.20) 07/20/22 07:06 PT 11.2 Seconds (9.0-12.0) 07/17/22 16:24 INR 1.1 (0.9-1.1) 07/17/22 16:24 APTT 25.2 Seconds (21.0-31.0) 07/17/22 16:24 PTT Ratio 0.9 07/17/22 16:24 POC Sodium 143 mmol/L (135-144) 07/17/22 16:47 Sodium 144 mmol/L (136-145) 07/20/22 07:06 POC Potassium 3.4 mmol/L (3.3-5.0) 07/17/22 16:47 Potassium 3.6 mmol/L (3.5-5.1) 07/20/22 07:06 POC Chloride 103 mmol/L (101-112) 07/17/22 16:47 Chloride 111 mmol/L (98-107) H 07/20/22 07:06 Carbon Dioxide 28 mmol/L (21-32) 07/20/22 07:06 POC Total CO2 26 mmol/L (24-31) 07/17/22 16:47 Anion Gap 5 (3-11) 07/20/22 07:06 POC Anion Gap 18.0 mmol/L (16-25) 07/17/22 16:47 POC BUN 13 mg/dl (7-18) 07/17/22 16:47 BUN 17 mg/dl (6-23) 07/20/22 07:06 Creatinine 0.98 mg/dl (0.6-1.2) 07/20/22 07:06 POC Creatinine 1.0 mg/dl (0.6-1.3) 07/17/22 16:47 Est Cr Clr Drug Dosing 45.1 ml/min 07/20/22 07:06 Est GFR ( Amer) 64.0 ml/min 07/20/22 07:06 Est GFR (Non-Af Amer) 55.3 ml/min 07/20/22 07:06 BUN/Creatinine Ratio 17.3 (10-20) 07/20/22 07:06 Glucose 95 mg/dl (70-99(Fasting)) 07/20/22 07:06 POC Glucose (other) 99 mg/dl (70-99) 07/17/22 16:47 Lactate 0.9 mmol/L (0.4-2.0) 07/17/22 16:24 Calcium 9.1 mg/dl (8.6-10.3) 07/20/22 07:06 POC Ioniz Calcium Coleman 1.26 mmol/l (1.12-1.32) 07/17/22 16:47 Magnesium 1.8 mg/dl (1.7-2.4) 07/18/22 05:21 Total Bilirubin 1.4 mg/dl (0.2-1.0) H 07/17/22 16:24 AST 19 U/L (13-39) 07/17/22 16:24 ALT 15 U/L (7-52) 07/17/22 16:24 Alkaline Phosphatase 57 U/L (34-104) 07/17/22 16:24 Ammonia 23.0 umol/L (18-72) 07/17/22 17:03 Total Creatine Kinase 97 U/L (26-192) 07/17/22 16:24 Troponin I High Sens 5.7 pg/ml (0-14) 07/17/22 16:24 Total Protein 6.9 gm/dl (6.0-8.3) 07/17/22 16:24 Albumin 4.1 gm/dl (3.4-5.0) 07/17/22 16:24 Globulin 2.8 gm/dl (2.5-4.0) 07/17/22 16:24 Albumin/Globulin Ratio 1.5 (0.9-2) 07/17/22 16:24 Urine Color Yellow 07/17/22 18:39 Urine Appearance Clear (Clear) 07/17/22 18:39 Urine pH 7.0 (4.5-7.5) 07/17/22 18:39 Ur Specific [place] > 1.045 (1.000-1.030) H 07/17/22 18:39 Urine Protein Trace (Negative) H 07/17/22 18:39 Urine Glucose (UA) Negative (Negative) 07/17/22 18:39 Urine Ketones Trace (Negative) H 07/17/22 18:39 Urine Blood Trace (Negative) H 07/17/22 18:39 Urine Nitrite Negative (Negative) 07/17/22 18:39 Urine Bilirubin Negative (Negative) 07/17/22 18:39 Urine Urobilinogen Negative (Negative) 07/17/22 18:39 Ur Leukocyte Esterase Trace (Negative) H 07/17/22 18:39 Urine WBC (Auto) 1-5 /hpf (0-5) 07/17/22 18:39 Urine RBC (Auto) 0-4 /hpf (0-4) 07/17/22 18:39 U Hyaline Cast (Auto) 1-5 /lpf (0-5) 07/17/22 18:39 U Epithel Cells (Auto) 20-30 /lpf (0-5) H 07/17/22 18:39 Urine Bacteria (Auto) Negative (Negative) 07/17/22 18:39 SARS-CoV-2 (PCR) NEGATIVE (Negative) 07/17/22 16:24 Influenza Type A (PCR) Negative (Neg) 07/17/22 16:24 Influenza Type B (PCR) Negative (Neg) 07/17/22 16:24 RSV (RT-PCR) Negative (Neg) 07/17/22 16:24 Impressions Head CTA 07/17/22 16:08 CT angio neck with con, CT head/brain wo con, CT angio head w con CLINICAL HISTORY: confusion, right side issues x2 days TECHNIQUE: Contiguous axial CT images of the head were acquired from the base of the skull to the vertex without intravenous contrast administration. CT angiography of the head and neck was performed following intravenous administration of iodinated contrast. Coronal and sagittal MIPS were obtained from the axial data set and were submitted for review. Automated dose lowering techniques and/or adjustment according to patient size were utilized for this examination. All measurements were calculated based on NASCET criteria. CT DOSE: 1186.40 mGy.cm Comparison: None available at the time of this dictation. FINDINGS: CT head: There is no acute intracranial hemorrhage or evidence of acute territorial infarction. No shift of the midline structures, mass effect, or extra-axial abnormalities are shown. There is a left thyroid nodule measuring 26 mm in diameter. CTA Neck: A 3 vessel aortic arch is shown. There is no significant atherosclerotic plaque in the aortic arch or the origins of the innominate, left common carotid, and left subclavian arteries. The common carotid, external carotid, cervical segments of the internal carotid arteries, and the cervical segments of the vertebral arteries are patent without hemodynamically significa nt stenosis. The left vertebral artery is dominant. CTA Head: The anterior and posterior cerebral circulations are patent. origin of the bilateral posterior cerebral arteries noted. IMPRESSION: 1. No acute intracranial hemorrhage, evidence of acute territorial infarction, or other acute intracranial disease process. 2. No occlusion, hemodynamically significant stenosis, or dissection in the major cervical arteries. 3. No occlusion, hemodynamically significant stenosis, aneurysm, dissection, or arteriovenous malformation in the major intracranial arteries. Assessment of stenosis of the internal carotid arteries is based on NASCET criteria. ACT 112: Negative or not required by law. Electronically signed by: Dm Figueredo M.D. 07/17/2022 6:27 PM Neck CTA 07/17/22 16:08 CT angio neck with con, CT head/brain wo con, CT angio head w con CLINICAL HISTORY: confusion, right side issues x2 days TECHNIQUE: Contiguous axial CT images of the head were acquired from the base of the skull to the vertex without intravenous contrast administration. CT angiography of the head and neck was performed following intravenous administration of iodinated contrast. Coronal and sagittal MIPS were obtained from the axial data set and were submitted for review. Automated dose lowering techniques and/or adjustment according to patient size were utilized for this examination. All measurements were calculated based on NASCET criteria. CT DOSE: 1186.40 mGy.cm Comparison: None available at the time of this dictation. FINDINGS: CT head: There is no acute intracranial hemorrhage or evidence of acute territorial infarction. No shift of the midline structures, mass effect, or extra-axial abnormalities are shown. There is a left thyroid nodule measuring 26 mm in diameter. CTA Neck: A 3 vessel aortic arch is shown. There is no significant atherosclerotic plaque in the aortic arch or the origins of the innominate, left common carotid, and left subclavian arteries. The common carotid, external carotid, cervical segments of the internal carotid arteries, and the cervical segments of the vertebral arteries are patent without hemodynamically significant stenosis. The left vertebral artery is dominant. CTA Head: The anterior and posterior cerebral circulations are patent. origin of the bilateral posterior cerebral arteries noted. IMPRESSION: 1. No acute intracranial hemorrhage, evidence of acute territorial infarction, or other acute intracranial disease process. 2. No occlusion, hemodynamically significant stenosis, or dissection in the major cervical arteries. 3. No occlusion, hemodynamically significant stenosis, aneurysm, dissection, or arteriovenous malformation in the major intracranial arteries. Assessment of stenosis of the internal carotid arteries is based on NASCET criteria. ACT 112: Negative or not required by law. Electronically signed by: Dm Figueredo M.D. 07/17/2022 6:27 PM Brain MRI 07/18/22 00:27 CR Exam(s): MRI HEAD W/WO Contrast EXAM: MR Head Without and With Intravenous Contrast CLINICAL HISTORY: Reason for exam: confusion, hallucinations. TECHNIQUE: Magnetic resonance images of the head/brain without and with intravenous contrast in multiple planes. CONTRAST: Contrast must be dictated COMPARISON: Head CT 07/17/2022. FINDINGS: Brain: There is a 4.1 x 4.0 mm T2 dark and T1 bright nodule in the subcortical white matter of the posterior right frontal lobe with mild vasogenic edema which does not demonstrate significant enhancement. Remote ischemic injury of the left frontal lobe with encephalomalacia and gliosis. Moderate nonspecific white matter changes. No evidence of abnormal enhancement. No mass. No hemorrhage. No acute infarct. The flow voids at the base of the brain are intact. Ventricles: Unremarkable. No ventriculomegaly. Bones/joints: Unremarkable. Sinuses: Chronic ethmoid sinusitis. No acute sinusitis. Mastoid air cells: Unremarkable as visualized. No mastoid effusion. Orbits: Unremarkable as visualized. IMPRESSION: There is a 4.1 x 4.0 mm T2 dark and T1 bright nodule in the subcortical white matter of the posterior right frontal lobe with mild vasogenic edema concerning for acute intraparenchymal hemorrhage, much less likely metastatic disease. Remote ischemic injury of the left frontal lobe with encephalomalacia and gliosis. Moderate nonspecific white matter changes. Communications: Call Doctor Above results Electronically signed by: Maura Frausto MD 07/18/22 03:[address] 07/21/22 07:45 CT head/brain wo con CLINICAL HISTORY: follow up of ?intracranial bleed Technique: Contiguous axial CT images of the head were acquired from the base of the skull to the vertex without intravenous contrast administration. Images were viewed in brain, subdural and bone windows. Automated dose lowering techniques and/or adjustment according to patient size were utilized for this exam. Comparison: Comparison is made to CT head 07/19/2019 Findings: Previously noted right parietal hyperdensity is not well seen on today's exam. Left frontal lobe encephalomalacia is seen. Imaged portions of the paranasal sinuses and mastoid air cells are clear. The orbits appear normal. There are no acute fractures of the calvaria or scalp swelling. Impression: No focal lesion is seen to correspond to the 4 mm hyperdensity seen on prior exam which may represent expected decrease in density of an acute parenchymal hemorrhage. ACT 112: Negative or not required by law. Electronically signed by: Dm Figueredo M.D. 07/21/2022 8:48 AM 07/17/22 16:08 CT angio head w con Stat CT angio neck with con Stat CT head/brain wo con Stat 07/18/22 00:27 MR brain wo/w con Urgent 07/18/22 17:00 CT head/brain wo con Urgent 07/21/22 07:45 CT head/brain wo con Urgent Hospital Course (1) Cognitive decline: (2) Hallucinations: (3) Acute intracranial hemorrhage: (4) Hypertension: (5) Hypothyroidism: Plan Presented to the ED with hallucinations and confusion. Stroke work-up was negative but was found to have small acute intracranial hemorrhage and MRI and CT head. Repeat CT head was stable, it was again repeated today and it is resolved. She was seen by neurology and her symptoms were attributed to dementia and sundowning. She was started on Seroquel with improvement in her symptoms. She is closer to her baseline. Sleep hygiene and frequent reorientation were recommended. Seen by PT OT. Cleared for discharge home with family help. Comfortable and stable for discharge home. Updated sister at bedside. All questions were answered. She will follow-up with neurology as outpatient. She will continue on her home medications with addition of Seroquel. 40 minutes of time was spent seeing the patient at bedside, communicating with patient and family, as well as with care team, reviewing chart. Total Time Total Time Spent Total Time Spent (In Minutes): 40 Discharge Plan Discharge Items Patient Disposition: Home - Self-Care Reason For Visit: CONFUSION Discharge Diagnosis: Dementia, hallucination, acute intracranial bleeding Activity: Resume your previous activity Non-emergency contact: Primary Care Provider Call non-emergency contact if: you have any medication questions, your symptoms worsen, your pain is concerning for you and you have a fever Follow-up/Referrals: Kajal Whitaker DO [Primary Care Provider] - (Date & Time 07/26/2022 2:00 PM Provider Ann-Marie Brown DO Department [facility] ) Diet: Regular Addtl Attending Provider Instructions: Continue seroquel half tablet 1-2 hr before bedtime. Sleep hygiene and frequent orientation especially in evening hours is recommended. Follow up with neurology clinic Pending Studies at Discharge: No Stand-Alone Forms: My [facility], Smoking Cessation Medications and DC Order Prescriptions: New quetiapine 25 mg Tablet 12.5 mg PO HS Qty: 30 0RF Continued atorvastatin 10 mg tablet 10 mg PO QAM levothyroxine 50 mcg capsule 50 mcg PO QAM Rx Instructions: TAKE THIS MEDICATION AT LEAST 30 MINUTES BEFORE BREAKFAST OR ANY OTHER MEDICATIONS cholecalciferol (vitamin D3) 2,000 unit capsule 2,000 units PO QAM letrozole 2.5 mg tablet 2.5 mg PO QAM lisinopril 40 mg tablet 40 mg PO QAM pantoprazole 40 mg tablet,delayed release (DR/EC) 40 mg PO DAILY Discharge Orders: Discharge Order (Routine); Ordered 07/21/22 Ordered By: Deshaun Muhammad Admission Data Admit Date/Time: 07/17/22 19:56 Attending Provider: Deshaun Muhammad Admit Provider: Toñito Hernández Primary Care Provider: Kajal Whitaker Other Providers: Toñito Hernández ; Bill Lozada ; Onur Burnham ; Mona Peterson ; Naomie Ellison ; Amara Burciaga ; Wiley Bartlett ; Amara Ledezma ; Jayson Erazo ; Polo Land ; Anny Nam ; Tayler Ybarra ; Wiley Boyer ; Mika Lara Other Interventions: Discharge Summary Assessment (RN) Last Done: 07/21/22 14:02
== END 2022-07-21 14:30 | disposition home or self-care (01) | DRG 65 ==
LOC: ED 15:56 → 2N 19:56 → SUATTDRO 19:56 → 2N 21:06